=== PATIENT | female | born 1950 | race Caucasian/White ===

== ENCOUNTER 2017-01-29 03:17 | Inpatient (IN) | payer MEDICARE ==
[~2017-01-29] VITALS: Ht 152.4 cm; Wt 90.1 kg
[2017-01-29 04:23] LABS: BASO % 0.3 % (0.0-1.0); EOS # 0.1 10^3/uL (0.0-0.50); IMMATURE GRANULOCYTE % 0.3 % (0-0); LYMPH # 2.7 10^3/uL (1.5-4.5); LYMPH % 22.8 % (24.0-44.0); MEAN CORPUSCULAR HEMOGLOBIN 33.2 pg (27.0-33.0); MEAN CORPUSCULAR HGB CONC 34.5 g/dl (32.0-36.5); MEAN CORPUSCULAR VOLUME 96.3 fl (80.0-96.0); MONO % 8.1 % (0.0-5.0); NEUTROPHILS # 8.1 10^3/uL (1.8-7.7); NEUTROPHILS % 67.5 % (36.0-66.0); PLATELET COUNT, AUTOMATED 300 10^3/uL (150-450); RED CELL DISTRIBUTION WIDTH 12.3 % (11.5-14.5)
[2017-01-29 04:41] LABS: ALBUMIN 3.7 GM/DL (3.2-5.2); ALKALINE PHOSPHATASE 69 U/L (45-117); ALT/SGPT 95 U/L (12-78); AMYLASE 212 U/L (25-115); ANION GAP 5 MEQ/L (8-16); AST/SGOT 154 U/L (7-37); BILIRUBIN,DIRECT 0.4 MG/DL (0.0-0.2); BILIRUBIN,TOTAL 0.8 MG/DL (0.2-1.0); BLOOD UREA NITROGEN 20 MG/DL (7-18); CALCIUM LEVEL 8.8 MG/DL (8.8-10.2); CARBON DIOXIDE LEVEL 31 MEQ/L (21-32); CHLORIDE LEVEL 104 MEQ/L (98-107); CREATININE FOR GFR 0.83 MG/DL (0.55-1.02); GLOMERULAR FILTRATION RATE > 60.0 (>45); GLUCOSE, FASTING 128 MG/DL (80-110); POTASSIUM SERUM 3.9 MEQ/L (3.5-5.1); SODIUM LEVEL 140 MEQ/L (136-145); TOTAL PROTEIN 7.8 GM/DL (6.4-8.2)
[2017-01-29] MEDS ORDERED: METOCLOPRAMIDE INJ 10MG/2ML VIAL (J2765) IV ONE (05:00)
[2017-01-29] MEDS ORDERED: NS 1,000 ML IV ONE (05:00)
[2017-01-29] MEDS ORDERED: MORPHINE 4 MG/ML 1ML SYRINGE IV ONE (05:00)
[2017-01-29] MEDS ORDERED: ISOVUE-370 76% 100ML VIAL (Q9967) As Ordered ONE (05:19)
--- NOTE | 2017-01-29 06:10 | REPUSA ---
CLINICAL HISTORY: Abdominal pain. TECHNIQUE: Multiple axial and coronal CT images were obtained through the abdomen and pelvis after ad ministration of oral and intravenous contrast material. COMMENTS: The liver is of uniform attenuation without mass or defect. There is no intra or extrahepatic biliary ductal dilatation. The spleen is normal. The gallbladder is distended, thickened and enhancing . The pancreas is mildly enlarged and hyperdense with surrounding inflammatory fat stranding. Minimal amou nt of surrounding free fluid. There is no evidence of adrenal mass. Both kidneys demonstrate prompt and equal nephrograms. The kidneys are normal in size, shape and conf iguration. There is no evidence of renal or ureteral mass. No renal or ureteral calculi are identifie d. There is no hydroureter or hydronephrosis. No evidence for appendicitis. There is no bowel wall thickening. No evidence for small or large bowel obstruction. There is no evidence of abdominal lymphadenopathy. There is no evidence of intrinsic or extrinsic bladder mass. There is no pelvic ascites or lymphadeno reena. Images of the lung bases show no evidence of pleural or parenchymal mass. There are no pleural effusi ons. The bony structures are free of lytic or blastic lesions. IMPRESSION: Acute pancreatitis. No drainable fluid collection. Suspected acute inflammatory changes of the gallbladder which is distended. No perforation or abscess formation. Thank you for your kind referral of this patient.
--- NOTE | 2017-01-29 08:17 | REP ---
RIGHT UPPER QUADRANT ULTRASOUND: 01/29/2017. Clinical history: CT abdomen and pelvis 01/29/2017. Clinical history: Pancreatitis symptoms. Gallbladder distension. The liver is homogeneous and diffusely hyperechoic consistent with fatty infiltration. There is some focal fat sparing. No biliary dilatation, adjacent ascites or hepatic cyst/mass. Gallbladder is distended measuring up to 10 cm. There is a small stone dependent in the gallbladder. Some pericholecystic fluid is present. The wall is edematous. There is significant tenderness of the gallbladder representing sonographic Eastman sign. Limited view of the pancreas, that area that is seen shows no definite mass. Common duct is 8.3 mm which is upper limits of normal for age. I do not see an echogenic filling defect or stone within. Right kidney is 10.6 x 5.5 x 5 cm without hydronephrosis. Impression: 1. Positive sonographic Eastman's sign, pericholecystic fluid, some gallbladder wall edema and a tiny stone in the gallbladder representing some acute cholecystitis with cholelithiasis. 2. The common bile duct 8.3 mm, upper limits normal for age and no filling defect within it. 3. Pancreatic head and body seen in part without discrete mass, but only seen in part due to gas shadowing. 4. Fatty infiltration of the liver. No generalized ascites. The right kidney normal. Signed by John Jacobsen MD 01/30/2017 05:47 P
[2017-01-29] MEDS ORDERED: MORPHINE 2 MG/ML 1ML SYRINGE IV PRN (09:00)
[2017-01-29] MEDS ORDERED: DEXTROSE 50% 50 ML SYRINGE IV PRN (09:00)
[2017-01-29] MEDS ORDERED: ONDANSETRON 4MG/2ML VIAL (J2405) IV PRN (09:00)
[2017-01-29] MEDS ORDERED: GLUCAGON FOR INJ 1 MG VIAL (J1610) SC PRN (09:00)
[2017-01-29] MEDS ORDERED: PIPERACILLIN/TAZOBACTAM SOD 3.375 GM in APPROPRIATE DILUENT 1 EA IV ONE (09:00)
[2017-01-29] MEDS ORDERED: GLUCOSE 4 GM CHEW TABLET PO PRN (09:00)
[2017-01-29] MEDS: NS 1,000 ML IV SCH ×4 (09:21→20:37)
--- NOTE | 2017-01-29 13:37 | HPEPDOC ---
General Date of Admission Jan 29, 2017 at 08:48 Other Providers PCP: Dr. Cheng in [place], [place] Attending Physician: GENNA WARD MD Chief Complaint The patient is a 66-year-old female admitted with a reason for visit of Pancreatitis. Source: Patient Exam Limitations: No limitations History of Present Illness Ms. Hong is a 66 year old female who presents to [facility]'s Emergency Department with abdominal pain. Past medical history is significant for: pancreatitis; diverticulitis; fibromyalgia; hiatal hernia; fatty liver; anxiety. She reports abdominal pain beginning this morning around 0100; she states she had not yet gone to bed. She described the pain as "gas" and drank some pepe melina that did not provide sufficient relief. Further describes the pain as a "hurt." The pain worsened over the next 1-2 hours and began radiating to her back, between her shoulder blades. At the point, she woke her and had a neighbor drive her to the hospital. She denies any recent changes to her diet ; she denies any recent trauma. She does state she has been recovering from a URI over the last 2-3 weeks, and maintains an occasional dry cough. She had a prior episode of pancreatitis "in the spring"; she was not admitted to the hospital but rather managed by her PCP. The pain described during this episode was sharp. She takes no prescription medications; she only takes herbal supplements: FibroCare, CoQ10, Celadrin, probiotic, gallbladder supplement. Hospitalist service was consulted for the patient to be admitted for further medical management. Home Medications No Active Prescriptions or Reported Meds Allergies Coded Allergies: No Known Allergies (Unverified , 01/29/17) Past Medical History Medical History 1. Pancreatitis 2. Diverticulitis 3. Hiatal hernia 4. Fatty liver 5. Anxiety Surgical History 1. D&C for postmenopausal bleeding 2. Colon resection for diverticulitis 3. Carpal tunnel surgery, bilateral 4. 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 Dyspnea, Edema, Lt Headedness Gastrointestinal: Reports: Abdominal Pain, Denies: Nausea, Vomiting, Diarrhea, Constipation, Melena, Hematochezia Genitourinary: Denies: Dysuria, Frequency, Incontinence, Hematuria, Retention Hematologic: Denies: Bruising, Bleeding Excessively, Enlarged Lymph Nodes Endocrine: Denies: Polydipsia, Polyphagia, Polyuria Musculoskeletal: Denies: Neck Pain, Back Pain, Joint Pain, Muscle Pain, Spasms Neurological: Denies: Weakness, Numbness, Change in speech, Confusion Psych: Reports: Mood Normal, Anxiety, Denies: Depression, Memory Issues Physical Examination General Exam: Positive: Alert, Cooperative, No Acute Distress Eye Exam: Positive: PERRLA, Conjunctiva & lids normal, EOMI, Negative: Sclera icteric, Ptosis ENT Exam: Positive: Atraumatic, Mucous membr. moist/pink, Pharynx Normal, Tongue Midline, Negative: Pharyngeal Edema Neck Exam: Positive: Supple, Negative: JVD, thyromegaly, Lymphadenopathy Chest Exam: Positive: Clear to auscultation, Normal air movement Heart Exam: Positive: Rate Normal, Regular Rhythm, Normal S1, Normal S2, Negative: Murmurs, Rubs Telemetry: Positive: No significant arrhythmia Abdomen Exam: Positive: Normal bowel sounds, Soft, Tenderness (Throughout abdomen; worse upper right, epigastric), Negative: Hepatospenomegaly Extremity Exam: Positive: Normal pulses, Negative: Clubbing, Cyanosis, Edema Skin Exam: Positive: Nl turgor and temperature, Negative: Breakdown, Lesion Neuro Exam: Positive: Normal Gait, Normal Speech, Cranial Nerves 3-12 NL, Reflexes 2+ Psych Exam: Positive: Mental status NL, Mood NL, Oriented x 3 Other physical findings Abdomen CT Impression: Acute pancreatitis. No drainable fluid collection. Suspected acute inflammatory changes of the gallbladder which is distended. No perforation or abscess formation. Gallbladder Ultrasound Impression: 1. Positive sonographic Eastman's sign, pericholecystic fluid, some gallbladder wall edema and a tiny stone in the gallbladder representing some acute cholecystitis with cholelithiasis. 2. The common bile duct 8.3 mm, upper limits normal for age and no filling defect within it. 3. Pancreatic head and body seen in part without discrete mass, but only seen in part due to gas shadowing. 4. Fatty infiltration of the liver. No generalized ascites. The right kidney normal. Vital Signs Vital Signs Date Time Temp Pulse Resp B/P (MAP) Pulse Ox O2 Delivery O2 Flow Rate FiO2 01/29/17 09:50 88 97 01/29/17 09:46 144/71 (95) 01/29/17 05:45 20 01/29/17 03:31 97.1 Room Air Height (in): 60 Weight (kg): 89.9 BMI (kg): 38.7 Laboratory Data Labs 24H Laboratory Tests 2 01/29/17 04:09: Anion Gap 5L, Glomerular Filtration Rate > 60.0, Calcium Level 8.8, Aspartate Amino Transf (AST/SGOT) 154H, Alanine Aminotransferase (ALT/SGPT) 95H, Alkaline Phosphatase 69, Total Bilirubin 0.8, Direct Bilirubin 0.4H, Total Creatine Kinase 162, Creatine Kinase MB 1.8, Creatine Kinase MB Relative Index 1.11, Troponin I < 0.02, Total Protein 7.8, Albumin 3.7, Albumin/Globulin Ratio 0.90L , Amylase Level 212H, Lipase 9382H 01/29/17 04:10: Immature Granulocyte % (Auto) 0.3H, White Blood Count 12.0H, Red Blood Count 4.58, Hemoglobin 15.2, Hematocrit 44.1, Mean Corpuscular Volume 96.3H, Mean Corpuscular Hemoglobin 33.2H, Mean Corpuscular Hemoglobin Concent 34.5, Red Cell Distribution Width 12.3, Platelet Count 300, Neutrophils (%) (Auto) 67.5H, Lymphocytes (%) (Auto) 22.8L, Monocytes (%) (Auto) 8.1H, Eosinophils (%) (Auto) 1.0, Basophils (%) (Auto) 0.3, Neutrophils # (Auto) 8.1H, Lymphocytes # (Auto) 2.7, Monocytes # (Auto) 1.0H, Eosinophils # (Auto) 0.1, Basophils # (Auto) 0.0, Immature Granulocyte # (Auto) 0.0, Nucleated Red Blood Cells % (auto) 0.0, Urine Appearance CLEAR, Urine Color STRAW, Urine pH 7.0, Urine Specific [employer] 1.008, Urine Protein NEGATIVE, Urine Glucose (UA) NEGATIVE, Urine Ketones NEGATIVE, Urine Urobilinogen 0.2, Urine Bilirubin NEGATIVE, Urine Leukocyte Esterase 1+H, Urine Blood NEGATIVE, Urine Nitrite NEGATIVE, Urine WBC (Auto) 5H , Urine RBC (Auto) 3, Urine Hyaline Casts (Auto) 0, Urine Bacteria (Auto) 1+H, Urine Squamous Epithelial Cells 2, Urine Sperm (Auto) CBC/BMP Laboratory Tests 01/29/17 04:09 01/29/17 04:10 Red Blood Count 4.58, Mean Corpuscular Volume 96.3 H, Mean Corpuscular Hemoglobin 33.2 H, Mean Corpuscular Hemoglobin Concent 34.5, Red Cell Distribution Width 12.3, Neutrophils (%) (Auto) 67.5 H, Lymphocytes (%) (Auto) 22.8 L, Monocytes (%) (Auto) 8.1 H, Eosinophils (%) (Auto) 1.0, Basophils (%) ( Auto) 0.3, Neutrophils # (Auto) 8.1 H, Lymphocytes # (Auto) 2.7, Monocytes # ( Auto) 1.0 H, Eosinophils # (Auto) 0.1, Basophils # (Auto) 0.0 Microbiology Microbiology 01/29/17 Urine Culture, Received Pending Plan / VTE VTE Prophylaxis Ordered?: Yes (Heparin 5,000 units SC every 8 hours; TEDs, sequentials, knee high compression) Plan Plan 1. Acute Pancreatitis: Continue with IVF with NS @250mLs/hr for 2L; then transition to 150mLs/hr. NPO. Surgical consult. Obtaining MRCP. Morphine, as needed for pain control. Zofran for nausea. Repeat lipase. Obtain amylase , CRP, and triglycerides. Disposition Admit: Medical-surgical unit Anticipated hospitalization: 3 nights Attending: Dr. Ward IVF: Continue Diet: Make NPO Activity: Continue Current Diagnostics: Check Labs, Repeat Labs in AM, MRI (MRCP) Anticipated Discharge: Home SERAFIN MENDES DO Jan 29, 2017 11:28
[2017-01-29 14:00] VITALS: BP 153/73
[2017-01-29] MEDS: HEPARIN SOD (PORCINE) 5000 UNITS/ML VIAL SC SCH ×2 (14:00→22:28)
[2017-01-29 18:31] VITALS: BP 147/71
[2017-01-29 22:00] VITALS: BP 161/78
[2017-01-30] MEDS: NS 1,000 ML IV SCH ×4 (02:25→23:07)
[2017-01-30 06:00] VITALS: BP 152/74
[2017-01-30] MEDS: HEPARIN SOD (PORCINE) 5000 UNITS/ML VIAL SC SCH (06:00)
[2017-01-30 06:59] LABS: BASO % 0.3 % (0.0-1.0); EOS # 0.3 10^3/uL (0.0-0.50); EOS % 2.8 % (0.0-3.0); IMMATURE GRANULOCYTE % 0.3 % (0-0); LYMPH # 2.3 10^3/uL (1.5-4.5); LYMPH % 24.9 % (24.0-44.0); MEAN CORPUSCULAR HEMOGLOBIN 33.3 pg (27.0-33.0); MEAN CORPUSCULAR HGB CONC 34.3 g/dl (32.0-36.5); MEAN CORPUSCULAR VOLUME 97.2 fl (80.0-96.0); MONO # 0.9 10^3/uL (0.0-0.8); MONO % 9.4 % (0.0-5.0); NEUTROPHILS # 5.7 10^3/uL (1.8-7.7); NEUTROPHILS % 62.3 % (36.0-66.0); PLATELET COUNT, AUTOMATED 252 10^3/uL (150-450); RED CELL DISTRIBUTION WIDTH 12.6 % (11.5-14.5); WHITE BLOOD COUNT 9.2 10^3/uL (4.0-10.0)
[2017-01-30 07:09] LABS: ALBUMIN 2.9 GM/DL (3.2-5.2); ALBUMIN/GLOBULIN RATIO 0.78 (1.00-1.93); ALKALINE PHOSPHATASE 79 U/L (45-117); ALT/SGPT 271 U/L (12-78); AMYLASE 350 U/L (25-115); ANION GAP 7 MEQ/L (8-16); AST/SGOT 187 U/L (7-37); BILIRUBIN,TOTAL 1.4 MG/DL (0.2-1.0); BLOOD UREA NITROGEN 11 MG/DL (7-18); CALCIUM LEVEL 8.1 MG/DL (8.8-10.2); CARBON DIOXIDE LEVEL 25 MEQ/L (21-32); CHLORIDE LEVEL 110 MEQ/L (98-107); GLOMERULAR FILTRATION RATE > 60.0 (>45); GLUCOSE, FASTING 78 MG/DL (80-110); MAGNESIUM LEVEL 1.7 MG/DL (1.8-2.4); POTASSIUM SERUM 3.7 MEQ/L (3.5-5.1); SODIUM LEVEL 142 MEQ/L (136-145); TOTAL PROTEIN 6.6 GM/DL (6.4-8.2); TRIGLYCERIDES LEVEL 50 MG/DL (<150)
[2017-01-30] MEDS ORDERED: MAG SULF 1GM/100ML (MAG RUN) 1 GM in APPROPRIATE DILUENT 1 EA IV ONE (07:45)
--- NOTE | 2017-01-30 09:00 | REP ---
MRI ABDOMEN WITHOUT CONTRAST (MRCP): 01/29/2017. Clinical history: Pancreatitis. Increased abdominal pain. Small stone or stones on gallbladder ultrasound. Technique: Coronal T2, axial fat suppressed T2 with thick slab coronal fat suppressed T2 rotational views, 3-D heavy T2-weighted coronal sequence with MIP reformatting and rotational display about the longitudinal axis of the abdomen. Gradient-echo fat suppressed sequence also in volume reconstructions rotated about the coronal axis of the body. Gallbladder mildly distended at 9.6 x 3.7 x 3.3 cm. A couple of tiny filling defects are seen on the coronal T2 images less well visualized on the thick slab images but also seen on gradient echo coronal acquisition. These reflect small stones which may be adherent or in the dependent gallbladder. I do not see stone in the neck of the gallbladder or dilatation of the cystic duct. Common duct has a maximal diameter of 6.1 mm. It does not have filling defect in the az hepatis or pancreatic head region. The distal pancreatic duct is seen in the pancreatic head without dilatation or filling defect. There is a small amount of fluid in the duodenum, but no evidence of mass adjacent to the pancreas nor abnormal fluid collection. There is no hepatomegaly with a 17 cm vertical diameter of the liver. No intrahepatic biliary dilatation. No perihepatic ascites. No splenomegaly or focal splenic lesion seen. Kidneys show a few parapelvic cysts in the lower poles but no hydronephrosis or hydroureter. No solid mass or perinephric fluid. Aorta unremarkable. Visualized pancreas is without mass or ductal dilatation. Impression: 1. There are a few tiny stones in the gallbladder near the fundus that are either adherent stones or small stones in that dependent portion. I do not see stones in the gallbladder neck or cystic duct. The common duct is 6 mm without a filling defect in the az hepatis. It tapers normally to the ampulla in its course. Pancreatic head and that of the distal pancreatic duct were entirely normal. 2. There is no ascites or focal hepatic lesion. 3. No evidence of pancreatitis by MRI. Signed by John Jacobsen MD 01/30/2017 08:25 P
[2017-01-30] MEDS: PIPERACILLIN/TAZOBACTAM SOD 3.375 GM in APPROPRIATE DILUENT 1 EA IV SCH ×3 (10:10→21:13)
--- NOTE | 2017-01-30 10:40 | IPNPDOC ---
Date Seen The patient was seen on 01/30/17. Progress Note SUBJECTIVE: Patient is a 66-year-old female with past medical history of: pancreatitis; diverticulitis; fibromyalgia; hiatal hernia; fatty liver; anxiety; presenting on 01/29/2017 with abdominal pain. Today she was seen bedside and had no stated complaints. She has been refusing the heparin subcutaneous injections, but maintains wearing the SCDs and states she will begin walking once her brings her robe. She denies headache, lightheadedness, dizziness, chest pain, shortness of breath, difficulty breathing, abdominal pain, nausea vomiting. OBJECTIVE PHYSICAL EXAMINATION: VITAL SIGNS: Please see below. GENERAL: Well-nourished female patient lying supine in bed HEENT: Atraumatic, normocephalic; EOMI; mucus membranes moist; neck supple CARDIOVASCULAR: Regular rate; normal S1/S2; no noted rubs, murmurs, or gallops RESPIRATORY: Clear to auscultation in all cuadra bilaterally ABDOMINAL: Soft; tender in right upper quadrant, epigastric, non-tender otherwise. Normoactive bowel sounds EXTREMITIES: Moves all extremities. No noted peripheral edema, painful to palpation of lower extremities NEUROLOGICAL: CN II-XII grossly intact PSYCHOLOGICAL: Pleasant mood and affect; alert and conversant. LABORATORY DATA: Please see below. MICROBIOLOGY: Please see below. IMAGING: Abdomen/Pelvis CT Impression: Acute pancreatitis. No drainable fluid collection. Suspected acute inflammatory changes of the gallbladder which is distended. No perforation or abscess formation. Gallbladder Ultrasound Impression: 1. Positive sonographic Eastman's sign, pericholecystic fluid, some gallbladder wall edema and a tiny stone in the gallbladder representing some acute cholecystitis with cholelithiasis. 2. The common bile duct 8.3 mm, upper limits normal for age and no filling defect within it. 3. Pancreatic head and body seen in part without discrete mass, but only seen in part due to gas shadowing. 4. Fatty infiltration of the liver. No generalized ascites. The right kidney normal. MRCP Impression: 1. There are a few tiny stones in the gallbladder near the fundus that are either adherent stones or small stones in that dependent portion. I do not see stones in the gallbladder neck or cystic duct. The common duct is 6 mm without a filling defect in the az hepatis. It tapers normally to the ampulla in its course. Pancreatic head and that of the distal pancreatic duct were entirely normal. 2. There is no ascites or focal hepatic lesion. 3. No evidence of pancreatitis by MRI. DVT prophylaxis ordered?: Yes, TEDs and SCDs ASSESSMENT AND PLAN: This is a 66-year-old female with acute pancreatitis, acute cholecystitis. PROBLEMS: 1. Acute Pancreatitis: Continue with NS @150mLs/hr. Lipase has decreased to 8675. AST/ALT 187/271. Surgery consulted and recommends that if liver enzymes improve then patient can be discharged with follow-up for out-patient cholecystectomy. However, if bilirubin increases, then could consider GI consult for possible ERCP. Repeat amylase increased from 212 to 350. CRP obtained at 7.93 and triglycerides 50. 2. Cholecystitis/cholelithiasis: Resume Zosyn. Morphine for pain control, as needed. Zofran, as needed for nausea. Monitor LFTs. If worsening, then could consider GI consult and ERCP. 2. Hypomagnesemia: Replenish magnesium. DISPOSITION: Medical-surgical unit. Surgical recommendations as noted above. VS, I&O, 24H, Dolly Vital Signs/I&O Vital Signs Date Time Temp Pulse Resp B/P (MAP) Pulse Ox O2 Delivery O2 Flow Rate FiO2 01/30/17 06:00 97.7 77 16 152/74 (100) 92 Room Air I&O- Last 24 Hours up to 6 AM 01/31/17 06:00 Intake Total 1800 ml Balance 1800 ml Laboratory Data 24H LABS Laboratory Tests 2 01/30/17 06:20: Immature Granulocyte % (Auto) 0.3H, White Blood Count 9.2, Red Blood Count 3.99L , Hemoglobin 13.3, Hematocrit 38.8, Mean Corpuscular Volume 97.2H, Mean Corpuscular Hemoglobin 33.3H, Mean Corpuscular Hemoglobin Concent 34.3, Red Cell Distribution Width 12.6, Platelet Count 252, Neutrophils (%) (Auto) 62.3, Lymphocytes (%) (Auto) 24.9, Monocytes (%) (Auto) 9.4H, Eosinophils (%) (Auto) 2.8, Basophils (%) (Auto) 0.3, Neutrophils # (Auto) 5.7, Lymphocytes # (Auto) 2.3, Monocytes # (Auto) 0.9H, Eosinophils # (Auto) 0.3, Basophils # (Auto) 0.0, Immature Granulocyte # (Auto) 0.0, Nucleated Red Blood Cells % (auto) 0.0, Anion Gap 7L, Glomerular Filtration Rate > 60.0, Blood Urea Nitrogen 11, Creatinine 0.60, Sodium Level 142, Potassium Level 3.7, Chloride Level 110H, Carbon Dioxide Level 25, Calcium Level 8.1L, Aspartate Amino Transf (AST/SGOT) 187H, Alanine Aminotransferase (ALT/SGPT) 271H, Alkaline Phosphatase 79, Total Bilirubin 1.4#H, Triglycerides Level 50, Total Protein 6.6, Albumin 2.9#L, Magnesium Level 1.7L, C-Reactive Protein, Quantitative 7.93H, Albumin/Globulin Ratio 0.78L, Amylase Level 350H, Lipase 8675H CBC/BMP Laboratory Tests 01/30/17 06:20 Red Blood Count 3.99 L, Mean Corpuscular Volume 97.2 H, Mean Corpuscular Hemoglobin 33.3 H, Mean Corpuscular Hemoglobin Concent 34.3, Red Cell Distribution Width 12.6, Neutrophils (%) (Auto) 62.3, Lymphocytes (%) (Auto) 24.9, Monocytes (%) (Auto) 9.4 H, Eosinophils (%) (Auto) 2.8, Basophils (%) ( Auto) 0.3, Neutrophils # (Auto) 5.7, Lymphocytes # (Auto) 2.3, Monocytes # (Auto ) 0.9 H, Eosinophils # (Auto) 0.3, Basophils # (Auto) 0.0, Calcium Level 8.1 L, Aspartate Amino Transf (AST/SGOT) 187 H, Alanine Aminotransferase (ALT/SGPT) 271 H, Alkaline Phosphatase 79, Total Bilirubin 1.4 #H, Triglycerides Level 50, Total Protein 6.6, Albumin 2.9 #L Microbiology Microbiology 01/29/17 Urine Culture, Received Pending SERAFIN MENDES DO Jan 30, 2017 08:53
[2017-01-30] MEDS: ENOXAPARIN 40 MG/0.4 ML SYRINGE (J1650) SC SCH (11:35)
--- NOTE | 2017-01-30 12:17 | ECGEPIP ---
Stationary ECG Study [facility] - ED Test Date: 2017-01-29 Pat Name: VALENTINO MELCHOR Department: Room: - Gender: F Hardness Tester: MccabeB: [id number] Requested By: CULLEN RAMOS Order Number: [id number] Reading MD: Amanda Martinez Measurements Intervals [place] Rate: 82 P: 40 LA: 147 QRS: -4 QRSD: 104 T: 35 QT: 382 QTc: 447 Interpretive Statements SINUS RHYTHM ?PRIOR INFERIOR INFARCT PRWP NSTTW ABNORMALITY NO PRIOR FOR COMPARISON Electronically Signed On 01-30-2017 12:17:31 EST by Amanda Martinez
[2017-01-30 14:00] VITALS: BP 146/82
[2017-01-30 22:00] VITALS: BP 154/88
[2017-01-31] MEDS: PIPERACILLIN/TAZOBACTAM SOD 3.375 GM in APPROPRIATE DILUENT 1 EA IV SCH ×4 (02:03→21:11)
[2017-01-31] MEDS: NS 1,000 ML IV SCH ×2 (04:25→22:29)
[2017-01-31 06:00] VITALS: BP 138/64
[2017-01-31] MEDS ORDERED: MAG SULF 1GM/100ML (MAG RUN) 1 GM in APPROPRIATE DILUENT 1 EA IV ONE (07:15)
[2017-01-31 07:29] LABS: BASO % 0.2 % (0.0-1.0); EOS # 0.3 10^3/uL (0.0-0.50); EOS % 3.2 % (0.0-3.0); IMMATURE GRANULOCYTE % 0.2 % (0-0); LYMPH # 1.9 10^3/uL (1.5-4.5); LYMPH % 22.5 % (24.0-44.0); MEAN CORPUSCULAR HEMOGLOBIN 33.3 pg (27.0-33.0); MEAN CORPUSCULAR HGB CONC 34.2 g/dl (32.0-36.5); MEAN CORPUSCULAR VOLUME 97.5 fl (80.0-96.0); MONO # 0.7 10^3/uL (0.0-0.8); MONO % 8.2 % (0.0-5.0); NEUTROPHILS # 5.6 10^3/uL (1.8-7.7); NEUTROPHILS % 65.7 % (36.0-66.0); PLATELET COUNT, AUTOMATED 243 10^3/uL (150-450); RED CELL DISTRIBUTION WIDTH 12.3 % (11.5-14.5); WHITE BLOOD COUNT 8.6 10^3/uL (4.0-10.0)
[2017-01-31 07:45] LABS: ALBUMIN 3.1 GM/DL (3.2-5.2); ALBUMIN/GLOBULIN RATIO 0.82 (1.00-1.93); ALKALINE PHOSPHATASE 93 U/L (45-117); ALT/SGPT 199 U/L (12-78); ANION GAP 6 MEQ/L (8-16); AST/SGOT 95 U/L (7-37); BILIRUBIN,TOTAL 0.8 MG/DL (0.2-1.0); BLOOD UREA NITROGEN 9 MG/DL (7-18); CALCIUM LEVEL 8.5 MG/DL (8.8-10.2); CARBON DIOXIDE LEVEL 25 MEQ/L (21-32); CHLORIDE LEVEL 109 MEQ/L (98-107); CREATININE FOR GFR 0.61 MG/DL (0.55-1.02); GLOMERULAR FILTRATION RATE > 60.0 (>45); GLUCOSE, FASTING 75 MG/DL (80-110); POTASSIUM SERUM 4.3 MEQ/L (3.5-5.1); SODIUM LEVEL 140 MEQ/L (136-145); TOTAL PROTEIN 6.9 GM/DL (6.4-8.2)
--- NOTE | 2017-01-31 11:05 | CR ---
DATE OF CONSULTATION: 01/30/2017 REASON FOR CONSULTATION: Pancreatitis. HISTORY OF PRESENT ILLNESS: The patient is 66-year-old female presenting with epigastric abdominal pain that is been going on since around 1 o'clock the day before. The patient started right in the middle of her abdomen and was radiating straight into her back. She denies any nausea, vomiting. No diarrhea and no change in bowel movements. No recent history of infection or trauma to the area. She does have a history of gallbladder disease and was followed up for that for a couple of years. Was recommended have surgery at one point, however, she was hesitant to have surgery so she has been taking some gallbladder supplements to try and relieve her symptoms. She has not had any other symptoms of right upper quadrant pain or nausea or vomiting since then. She did have one other episode of this pancreatitis earlier this year that was not as severe as this but no other problems other than that episode. She currently is admitted to the hospital service. They have asked me to evaluate her for possible gallstone pancreatitis. Currently her symptoms are improved. She has been in the hospital for just over 12 hours. Her abdominal pain is gone. Denies any fevers or chills. No nausea, vomiting. No change in bowel or bladder movements. PAST MEDICAL HISTORY: Pancreatitis. Diverticulitis. Hiatal hernia. Fatty liver. Anxiety. PAST SURGICAL HISTORY: Dilation and curettage. Colon resection for diverticulitis. Carpal tunnel surgery bilaterally. Breast lumpectomy that was benign. ALLERGIES: None. HOME MEDICATIONS: Negative. FAMILY HISTORY: Noncontributory. SOCIAL HISTORY: Denies drug, alcohol, tobacco abuse. REVIEW OF SYSTEMS: Pertinent positive and negatives as stated in the history of present illness (HPI). PHYSICAL EXAMINATION: General: Patient is alert and oriented times three. No acute distress. Vitals: Temperature 97.7, pulse 77, respirations 16, blood pressure 152/74, pulse ox 98% in room air. HEENT: Pupils equal round react to light and accommodation. Heart: S1, S2 regular rate and rhythm. Lungs: Clear to auscultation bilaterally. Abdomen: Soft, slight tenderness to palpation epigastric. No rebounding, guarding, rigidity. Bowel sounds positive. Extremities: No clubbing, cyanosis or edema. LABORATORY DATA: White count 12, up to 9.2 today, hemoglobin 13.3. Total bilirubin 0.8 yesterday up to 1.4 today, direct bilirubin 0.4 up to 0.6 today, AST 154 up to 187, ALT 95 up to 271, lipase 9382 up to 8675. IMAGING STUDIES: CT abdomen and pelvis shows acute pancreatitis. No drainable fluid collection. Suspected acute inflammatory change in the gallbladder which is distended. No signs of perforation or abscess formation. Ultrasound of the abdomen shows positive sonographic Eastman sign, pericholecystic fluid. Some gallbladder wall edema and tiny stone in the gallbladder representing some acute cholecystitis with cholelithiasis. Common bile duct is 8.3 mm. No signs of filling defects within it pancreatic head and body are seen without any. Discrete masses. MRCP shows a few tiny stones in the gallbladder near the fundus. There are either adherence stones or small stones. No signs of stones in the gallbladder neck or the cystic duct. Common duct is 6 mm without a filling defect and the az hepatis tapers normally to the ampulla in its course. Pancreatic head and that of the distal pancreatic duct were entirely normal. No signs of ascites or focal hepatic lesions. No evidence of pancreatitis by MRI. ASSESSMENT/PLAN: The patient is a 66-year-old female with gallstone pancreatitis likely small amount of acute cholecystitis as well. In the last 24 hours, her liver enzymes have increased including her total and direct bilirubins so there is concern of either some sludge or tiny stones in the, bile duct as well resulting in some minor obstruction. Recommendation is to keep her nothing by mouth for now and continue to monitor enzymes. If enzymes continue to increase by tomorrow, then she will likely need a GI consult for endoscopic retrograde cholangiopancreatography (ERCP). However, if liver enzymes improve then recommendation will be to discharge home and followup with me to schedule an outpatient cholecystectomy. If her lipase had returned to normal sooner, then I would consider doing her procedure during this hospital stay. However, with increase in the enzymes over the last 24 hours as well as a slow improvement in her lipase, these are findings suggestive of a large amount of inflammation that would benefit from waiting a couple of weeks prior to surgical intervention. Thank you for the consult.
[2017-01-31 15:00] VITALS: BP 146/75
--- NOTE | 2017-01-31 15:55 | IPNPDOC ---
Date Seen The patient was seen on 01/31/17. Progress Note SUBJECTIVE: Patient is a 66-year-old female with past medical history of: pancreatitis; diverticulitis; fibromyalgia; hiatal hernia; fatty liver; anxiety; presenting on 01/29/2017 with abdominal pain. Today, she was seen at bedside and had only complaint of minor nausea, with no reported episodes of vomiting. She was informed that Zofran is available as needed, and she asked the nurse in the room to provide it. She also reports one episode of loose stools this morning. She denies headache, lightheadedness , dizziness, chest pain, shortness of breath, difficulty breathing. OBJECTIVE PHYSICAL EXAMINATION: VITAL SIGNS: Please see below. GENERAL: Well-nourished female patient lying supine in bed HEENT: Atraumatic, normocephalic; EOMI; mucus membranes moist; neck supple CARDIOVASCULAR: Regular rate; normal S1/S2; no noted rubs, murmurs, or gallops RESPIRATORY: Clear to auscultation in all cuadra bilaterally ABDOMINAL: Soft, non-tender in all quadrants. Normoactive bowel sounds EXTREMITIES: Moves all extremities. No noted peripheral edema. No noted peripheral pain on palpation NEUROLOGICAL: CN II-XII grossly intact PSYCHOLOGICAL: Pleasant mood and affect; alert and conversant. LABORATORY DATA: Please see below. MICROBIOLOGY: Please see below. IMAGING: Abdomen/Pelvis CT Impression: Acute pancreatitis. No drainable fluid collection. Suspected acute inflammatory changes of the gallbladder which is distended. No perforation or abscess formation. Gallbladder Ultrasound Impression: 1. Positive sonographic Eastman's sign, pericholecystic fluid, some gallbladder wall edema and a tiny stone in the gallbladder representing some acute cholecystitis with cholelithiasis. 2. The common bile duct 8.3 mm, upper limits normal for age and no filling defect within it. 3. Pancreatic head and body seen in part without discrete mass, but only seen in part due to gas shadowing. 4. Fatty infiltration of the liver. No generalized ascites. The right kidney normal. MRCP Impression: 1. There are a few tiny stones in the gallbladder near the fundus that are either adherent stones or small stones in that dependent portion. I do not see stones in the gallbladder neck or cystic duct. The common duct is 6 mm without a filling defect in the az hepatis. It tapers normally to the ampulla in its course. Pancreatic head and that of the distal pancreatic duct were entirely normal. 2. There is no ascites or focal hepatic lesion. 3. No evidence of pancreatitis by MRI. DVT prophylaxis ordered?: Lovenox 40mg SC daily. ASSESSMENT AND PLAN: This is a 66-year-old female with acute pancreatitis, acute cholecystitis. PROBLEMS: 1. Gallstone pancreatitis: Continue with NS @75mLs/hr. Lipase has decreased to 2500. AST/ALT 95/199. Total bilirubin decreased from 1.4 to 0.8 today. Continue with Zosyn. Morphine for pain control, as needed. Zofran, as needed for nausea. Patient will need to follow-up with general surgery out-patient to discuss cholecystectomy. Advance to clear liquid diet with advancement to regular diet if she tolerates it. Potential discharge in 24 hours. 3. Hypomagnesemia: Replenish magnesium. 4. Asymptomatic bacteriuria: Patient denies dysuria, increased frequency of urination, urinary urgency, suprapubic pain, hematuria. DISPOSITION: Admitted to the medical-surgical unit. Advanced diet. If diet tolerance, then potential discharge in 24 hours. VS[facility] Sign[facility]/I&O Vital Signs Date Time Temp Pulse Resp B/P (MAP) Pulse Ox O2 Delivery O2 Flow Rate FiO2 01/31/17 06:00 97.6 74 18 138/64 (88) 93 Room Air Laboratory Data 24H LABS Laboratory Tests 2 01/30/17 09:50: Direct Bilirubin 0.6H 01/31/17 06:53: Immature Granulocyte % (Auto) 0.2H, White Blood Count 8.6, Red Blood Count 3.96L , Hemoglobin 13.2, Hematocrit 38.6, Mean Corpuscular Volume 97.5H, Mean Corpuscular Hemoglobin 33.3H, Mean Corpuscular Hemoglobin Concent 34.2, Red Cell Distribution Width 12.3, Platelet Count 243, Neutrophils (%) (Auto) 65.7, Lymphocytes (%) (Auto) 22.5L, Monocytes (%) (Auto) 8.2H, Eosinophils (%) (Auto) 3.2H, Basophils (%) (Auto) 0.2, Neutrophils # (Auto) 5.6, Lymphocytes # (Auto) 1.9, Monocytes # (Auto) 0.7, Eosinophils # (Auto) 0.3, Basophils # (Auto) 0.0, Immature Granulocyte # (Auto) 0.0, Nucleated Red Blood Cells % (auto) 0.0, Anion Gap 6L, Glomerular Filtration Rate > 60.0, Blood Urea Nitrogen 9, Creatinine 0.61, Sodium Level 140, Potassium Level 4.3, Chloride Level 109H, Carbon Dioxide Level 25, Calcium Level 8.5L, Aspartate Amino Transf (AST/SGOT) 95H, Alanine Aminotransferase (ALT/SGPT) 199H, Alkaline Phosphatase 93, Total Bilirubin 0.8, Total Protein 6.9, Albumin 3.1L, Albumin/Globulin Ratio 0.82L, Lipase 2500H CBC/BMP Laboratory Tests 01/31/17 06:53 Red Blood Count 3.96 L, Mean Corpuscular Volume 97.5 H, Mean Corpuscular Hemoglobin 33.3 H, Mean Corpuscular Hemoglobin Concent 34.2, Red Cell Distribution Width 12.3, Neutrophils (%) (Auto) 65.7, Lymphocytes (%) (Auto) 22.5 L, Monocytes (%) (Auto) 8.2 H, Eosinophils (%) (Auto) 3.2 H, Basophils (%) (Auto) 0.2, Neutrophils # (Auto) 5.6, Lymphocytes # (Auto) 1.9, Monocytes # ( Auto) 0.7, Eosinophils # (Auto) 0.3, Basophils # (Auto) 0.0, Calcium Level 8.5 L , Aspartate Amino Transf (AST/SGOT) 95 H, Alanine Aminotransferase (ALT/SGPT) 199 H, Alkaline Phosphatase 93, Total Bilirubin 0.8, Total Protein 6.9, Albumin 3.1 L Microbiology Microbiology 01/29/17 Urine Culture - Final, Complete Enterococcus Faecium SERAFIN MENDES Jan 31, 2017 08:25
[2017-01-31 22:00] VITALS: BP 132/68
[2017-02-01] MEDS: PIPERACILLIN/TAZOBACTAM SOD 3.375 GM in APPROPRIATE DILUENT 1 EA IV SCH ×2 (03:26→09:35)
[2017-02-01 06:00] VITALS: BP 152/70
[2017-02-01 06:38] LABS: BASO % 0.6 % (0.0-1.0); EOS # 0.4 10^3/uL (0.0-0.50); EOS % 5.4 % (0.0-3.0); IMMATURE GRANULOCYTE % 0.3 % (0-0); LYMPH # 1.9 10^3/uL (1.5-4.5); LYMPH % 29.7 % (24.0-44.0); MEAN CORPUSCULAR HGB CONC 34.7 g/dl (32.0-36.5); MEAN CORPUSCULAR VOLUME 97.9 fl (80.0-96.0); MONO # 0.6 10^3/uL (0.0-0.8); MONO % 8.7 % (0.0-5.0); NEUTROPHILS # 3.6 10^3/uL (1.8-7.7); NEUTROPHILS % 55.3 % (36.0-66.0); PLATELET COUNT, AUTOMATED 250 10^3/uL (150-450); RED CELL DISTRIBUTION WIDTH 12.3 % (11.5-14.5); WHITE BLOOD COUNT 6.5 10^3/uL (4.0-10.0)
[2017-02-01 06:56] LABS: ALBUMIN 3.1 GM/DL (3.2-5.2); ALBUMIN/GLOBULIN RATIO 0.78 (1.00-1.93); ALKALINE PHOSPHATASE 95 U/L (45-117); ALT/SGPT 151 U/L (12-78); ANION GAP 6 MEQ/L (8-16); AST/SGOT 56 U/L (7-37); BILIRUBIN,TOTAL 0.6 MG/DL (0.2-1.0); BLOOD UREA NITROGEN 7 MG/DL (7-18); CALCIUM LEVEL 8.3 MG/DL (8.8-10.2); CARBON DIOXIDE LEVEL 27 MEQ/L (21-32); CHLORIDE LEVEL 110 MEQ/L (98-107); CREATININE FOR GFR 0.76 MG/DL (0.55-1.02); GLOMERULAR FILTRATION RATE > 60.0 (>45); GLUCOSE, FASTING 90 MG/DL (80-110); POTASSIUM SERUM 3.5 MEQ/L (3.5-5.1); SODIUM LEVEL 143 MEQ/L (136-145); TOTAL PROTEIN 7.1 GM/DL (6.4-8.2)
[2017-02-01] MEDS ORDERED: ZOFR4TAB3 PO (08:59)
[2017-02-01] MEDS ORDERED: CIPR500T3 PO (08:59)
[2017-02-01] MEDS ORDERED: FLAG500T PO (08:59)
[2017-02-01] MEDS: ENOXAPARIN 40 MG/0.4 ML SYRINGE (J1650) SC SCH (09:34)
--- NOTE | 2017-02-01 11:13 | DS.PDOC ---
Discharge Summary General Date of Admission Jan 29, 2017 at 08:48 Date of Discharge 02/01/2017 Primary Care Physician: SERAFIN MENDES DO Attending Physician: NARENDRA HAMMER MD Specialist/Consultants Involve: SHAY HILL DO Discharge Summary PROCEDURES PERFORMED DURING STAY: None. ADMITTING DIAGNOSES: 1. Pancreatitis. DISCHARGE DIAGNOSES: 1. Cholecystitis. 2. Pancreatitis. 3. Hypomagnesemia. 4. Asymptomatic bacteriuria COMPLICATIONS/CHIEF COMPLAINT: Pancreatitis. HISTORY OF PRESENT ILLNESS: Ms. Hong is a 66 year old female who presents to [facility] Emergency Department with abdominal pain. Past medical history is significant for: pancreatitis; diverticulitis; fibromyalgia; hiatal hernia; fatty liver; anxiety. She reports abdominal pain beginning this morning around 0100; she states she had not yet gone to bed. She described the pain as "gas" and drank some pepe melina that did not provide sufficient relief. Further describes the pain as a "hurt." The pain worsened over the next 1-2 hours and began radiating to her back, between her shoulder blades. At the point, she woke her and had a neighbor drive her to the hospital. She denies any recent changes to her diet; she denies any recent trauma. She does state she has been recovering from a URI over the last 2-3 weeks, and maintains an occasional dry cough. She had a prior episode of pancreatitis "in the spring"; she was not admitted to the hospital but rather managed by her PCP. The pain described during this episode was sharp. She takes no prescription medications; she only takes herbal supplements: FibroCare , CoQ10, Celadrin, probiotic, gallbladder supplement. Hospitalist service was consulted for the patient to be admitted for further medical management. HOSPITAL COURSE: Patient was admitted. Pain was managed with morphine, nausea managed with Zofran, Zosyn started for cholecystitis. Abdomen/pelvis CT showed acute pancreatitis with suspected inflammatory changes of the gallbladder; gallbladder ultrasound showed acute cholecystitis with cholelithiasis. However , MRCP later showed no evidence of pancreatitis. Surgery was consulted for possible cholecystectomy; they recommended following up in the office in 1-2 weeks and then scheduling the procedure to allow inflammation to decrease. Urine culture obtained in ED showed Enterococcus faecium, but patient remains asymptomatic. Labs including daily BMP, CBC, lipase, liver profile were obtained, which showed elevated white count with slight neutrophilia, elevated direct bilirubin, AST, ALT, amylase, and lipase, all of which improved throughout admission. Magnesium was noted to be low during admission and was replenished. The patient improved clinically throughout admission, and was stable at time of discharge. DISCHARGE MEDICATIONS: Please see below. ALLERGIES: Please see below. PHYSICAL EXAMINATION ON DISCHARGE: VITAL SIGNS: Please see below. GENERAL: Well-nourished adult female lying supine in bed in no apparent distress HEENT: Atraumatic, normocephalic, EOMI NECK: Supple CARDIOVASCULAR EXAMINATION: Normal S1/S2, regular rate, no noted rubs, murmurs, or gallops RESPIRATORY EXAMINATION: Clear to auscultation in all cuadra bilaterally ABDOMINAL EXAMINATION: Soft, non-tender, no peritoneal signs, normoactive bowel sounds EXTREMITIES: Moves all extremities, no noted peripheral edema SKIN: Warm and dry NEUROLOGICAL EXAMINATION: CN II-XII grossly intact PSYCHIATRIC EXAMINATION: Pleasant mood and affect; alert and conversant LABORATORY DATA: Please see below. IMAGING: Abdomen/Pelvis CT Impression: Acute pancreatitis. No drainable fluid collection. Suspected acute inflammatory changes of the gallbladder which is distended. No perforation or abscess formation. Gallbladder Ultrasound Impression: 1. Positive sonographic Eastman's sign, pericholecystic fluid, some gallbladder wall edema and a tiny stone in the gallbladder representing some acute cholecystitis with cholelithiasis. 2. The common bile duct 8.3 mm, upper limits normal for age and no filling defect within it. 3. Pancreatic head and body seen in part without discrete mass, but only seen in part due to gas shadowing. 4. Fatty infiltration of the liver. No generalized ascites. The right kidney normal. MRCP Impression: 1. There are a few tiny stones in the gallbladder near the fundus that are either adherent stones or small stones in that dependent portion. I do not see stones in the gallbladder neck or cystic duct. The common duct is 6 mm without a filling defect in the az hepatis. It tapers normally to the ampulla in its course. Pancreatic head and that of the distal pancreatic duct were entirely normal. 2. There is no ascites or focal hepatic lesion. 3. No evidence of pancreatitis by MRI. PROGNOSIS: Stable ACTIVITY: As tolerated. DIET: Regular diet. DISCHARGE PLAN: Problem: Managing health at home Goal: Improve health & wellness Instructions: Follow DC Instruction DISPOSITION: Home. DISCHARGE INSTRUCTIONS: 1. Continue with a clear liquid diet for the next days; transition to a regular diet after 2. Avoid high-fat meals 3. Start taking a probiotic while on the antibiotics 4. Complete the antibiotic, Ciprofloxacin, 500mg, 1 tablet every 12 hours, for 10 days 5. Complete the antibiotic, Metronidazole, 500mg, 1 tablet every 8 hours, for 10 days 6. Zofran as needed for nausea. Allow at least 4 hours between doses 7. Return to the Emergency Department if symptoms return or worsen ITEMS TO FOLLOWUP ON ON OUTPATIENT: 1. Schedule cholecystectomy on outpatient visit with surgery 2. Follow up with primary care provider, Dr. Mendes, on 02/08/17 @ 2:15pm; 3. Follow up with general surgery, Dr. Hill, on 02/15/17 @ 9:50am; Phone: DISCHARGE CONDITION: Stable. TIME SPENT ON DISCHARGE: Greater than 30 minutes. Vital Signs/I&Os Vital Signs Date Time Temp Pulse Resp B/P (MAP) Pulse Ox O2 Delivery O2 Flow Rate FiO2 02/01/17 06:00 98.7 61 18 152/70 (97) 96 Room Air Laboratory Data Labs 24H Laboratory Tests 2 02/01/17 06:17: Immature Granulocyte % (Auto) 0.3H, White Blood Count 6.5, Red Blood Count 3.85L , Hemoglobin 13.1, Hematocrit 37.7, Mean Corpuscular Volume 97.9H, Mean Corpuscular Hemoglobin 34.0H, Mean Corpuscular Hemoglobin Concent 34.7, Red Cell Distribution Width 12.3, Platelet Count 250, Neutrophils (%) (Auto) 55.3, Lymphocytes (%) (Auto) 29.7, Monocytes (%) (Auto) 8.7H, Eosinophils (%) (Auto) 5.4H, Basophils (%) (Auto) 0.6, Neutrophils # (Auto) 3.6, Lymphocytes # (Auto) 1.9, Monocytes # (Auto) 0.6, Eosinophils # (Auto) 0.4, Basophils # (Auto) 0.0, Immature Granulocyte # (Auto) 0.0, Nucleated Red Blood Cells % (auto) 0.0, Anion Gap 6L, Glomerular Filtration Rate > 60.0, Blood Urea Nitrogen 7, Creatinine 0.76, Sodium Level 143, Potassium Level 3.5, Chloride Level 110H, Carbon Dioxide Level 27, Calcium Level 8.3L, Aspartate Amino Transf (AST/SGOT) 56H, Alanine Aminotransferase (ALT/SGPT) 151H, Alkaline Phosphatase 95, Total Bilirubin 0.6, Total Protein 7.1, Albumin 3.1L, Albumin/Globulin Ratio 0.78L, Lipase 1075H CBC/BMP Laboratory Tests 02/01/17 06:17 Red Blood Count 3.85 L, Mean Corpuscular Volume 97.9 H, Mean Corpuscular Hemoglobin 34.0 H, Mean Corpuscular Hemoglobin Concent 34.7, Red Cell Distribution Width 12.3, Neutrophils (%) (Auto) 55.3, Lymphocytes (%) (Auto) 29.7, Monocytes (%) (Auto) 8.7 H, Eosinophils (%) (Auto) 5.4 H, Basophils (%) ( Auto) 0.6, Neutrophils # (Auto) 3.6, Lymphocytes # (Auto) 1.9, Monocytes # (Auto ) 0.6, Eosinophils # (Auto) 0.4, Basophils # (Auto) 0.0, Calcium Level 8.3 L, Aspartate Amino Transf (AST/SGOT) 56 H, Alanine Aminotransferase (ALT/SGPT) 151 H, Alkaline Phosphatase 95, Total Bilirubin 0.6, Total Protein 7.1, Albumin 3.1 L Microbiology Microbiology 01/29/17 Urine Culture - Final, Complete Enterococcus Faecium Discharge Medications Scheduled Ciprofloxacin HCl (Ciprofloxacin HCl) 500 Mg Tab, 500 MG PO Q12H Metronidazole (Flagyl) 500 Mg Tab, 500 MG PO Q8H FOR 10 DAYS Scheduled PRN Ondansetron (Zofran Odt) 4 Mg Tab, 4 MG PO Q4H PRN for NAUSEA Allergies Coded Allergies: No Known Allergies (Unverified , 01/29/17) SERAFIN MENDES DO Feb 01, 2017 08:45
== END 2017-02-01 12:59 | disposition home or self-care (01) | DRG 444 ==
LOC: M ED 03:17 → M ED INP 08:48 → M MS5PR 18:20
PROVIDERS: ADMIT General Practice; ATTEND Internal Medicine Nephrology
DX: K80.00 Calculus of gallbladder with acute cholecystitis without obstruction (principal); K85.10 Biliary acute pancreatitis without necrosis or infection; E83.42 Hypomagnesemia

== ENCOUNTER 2017-03-01 14:43 | Emergency (ER) | payer MEDICARE | END 2017-03-01 16:32 | disposition home or self-care (01) | LOC: M ED 14:43 | DX: J01.90 Acute sinusitis, unspecified (principal); M94.0 Chondrocostal junction syndrome [Tietze]; G51.0 Bell's palsy; F41.9 Anxiety disorder, unspecified; Z87.19 Personal history of other diseases of the digestive system; Z79.899 Other long term (current) drug therapy; Z91.040 Latex allergy status | CPT/HCPCS: 71046 ==

== ENCOUNTER 2017-03-14 08:01 | Day surgery (SDC) | payer MEDICARE ==
[2017-03-14] MEDS: LR 1,000 ML IV (08:15)
[2017-03-14] MEDS ORDERED: ROCURONIUM BROMIDE 50 MG/5 ML VIAL As Ordered (08:59)
[2017-03-14] MEDS ORDERED: LIDOCAINE 2% INJ 100 MG/5 ML SDV (FOR ANES.) As Ordered (08:59)
[2017-03-14] MEDS ORDERED: fentaNYL 250 MCG/5 ML INJECTION (J3010) As Ordered (08:59)
[2017-03-14] MEDS ORDERED: PROPOFOL 200 MG/20 ML VIAL As Ordered (08:59)
[2017-03-14] MEDS ORDERED: MIDAZOLAM INJ 2 MG/2 ML VIAL (J2250) As Ordered (08:59)
[2017-03-14] MEDS ORDERED: LR 1,000 ML IV ×2 (09:00→11:15)
[2017-03-14] MEDS: SCOPOLAMINE 1MG TRANSDERMAL PATCH TOP (09:00)
[2017-03-14] MEDS ORDERED: ONDANSETRON 4MG/2ML VIAL (J2405) As Ordered (09:54)
[2017-03-14] MEDS ORDERED: NEOSTIGMINE 10 MG/10 ML VIAL (J2710) As Ordered (09:54)
[2017-03-14] MEDS ORDERED: GLYCOPYRROLATE INJ 0.2 MG/ML 2 ML VIAL As Ordered (09:54)
[2017-03-14] MEDS ORDERED: dexameTHASONE 4 MG/ML 1ML VIAL (J1100) As Ordered (09:54)
[2017-03-14] MEDS ORDERED: KETOROLAC 60 MG/2 ML VIAL (J1885) As Ordered (09:54)
[2017-03-14] MEDS ORDERED: diphenhydrAMINE INJ 50MG/ML VIAL (J1200) As Ordered (09:54)
[2017-03-14] MEDS ORDERED: METOCLOPRAMIDE INJ 10MG/2ML VIAL (J2765) As Ordered (09:54)
[2017-03-14] MEDS: LIDOCAINE W/EPINEPHRINE 1% 20ML VIAL As Ordered (09:55)
[2017-03-14] MEDS ORDERED: ONDANSETRON 4MG/2ML VIAL (J2405) IV (11:15)
[2017-03-14] MEDS ORDERED: MEPERIDINE INJ 25 MG/ML VIAL (J2175) IV (11:15)
[2017-03-14] MEDS ORDERED: PERCOCET 5MG/325MG TAB PO (11:15)
[2017-03-14] MEDS ORDERED: fentaNYL 100 MCG/2 ML INJECTION (J3010) IV (11:15)
[2017-03-14] MEDS ORDERED: PROMETHAZINE INJ 25 MG/ML VIAL (J2550) IV (11:15)
[2017-03-14] MEDS ORDERED: NORCO, ANEXSIA 5/325MG TABLET (HYDROcodone/ACETAMINOPHEN) PO (11:30)
== END 2017-03-14 15:25 | disposition home or self-care (01) ==
LOC: M SDC 08:01
DX: K85.10 Biliary acute pancreatitis without necrosis or infection (principal); K80.10 Calculus of gallbladder with chronic cholecystitis without obstruction; K57.32 Diverticulitis of large intestine without perforation or abscess without bleeding; K76.0 Fatty (change of) liver, not elsewhere classified; F41.9 Anxiety disorder, unspecified; K44.9 Diaphragmatic hernia without obstruction or gangrene; E83.42 Hypomagnesemia; R82.71 Bacteriuria; T88.59XD Other complications of anesthesia, subsequent encounter; M12.9 Arthropathy, unspecified; Z79.899 Other long term (current) drug therapy; Z78.0 Asymptomatic menopausal state
CPT/HCPCS: 47562

== ENCOUNTER 2017-03-23 12:22 | Emergency (ER) | payer MEDICARE ==
[2017-03-23] MEDS ORDERED: MORPHINE 4 MG/ML 1ML SYRINGE IV (13:30)
[2017-03-23] MEDS ORDERED: ONDANSETRON 4MG/2ML VIAL (J2405) IV (13:30)
[2017-03-23] MEDS ORDERED: GASTROGRAFIN SOLUTION 30ML (Q9963) PO (13:45)
[2017-03-23] MEDS: GASTROGRAFIN SOLUTION 30ML (Q9963) PO ×2 (13:59→14:30)
[2017-03-23] MEDS: NS 1,000 ML IV (14:01)
[2017-03-23 14:06] LABS: BASO % 0.5 % (0.0-1.0); EOS # 0.1 10^3/uL (0.0-0.50); EOS % 1.6 % (0.0-3.0); HEMOGLOBIN 14.7 g/dl (12.0-16.0); IMMATURE GRANULOCYTE % 0.4 % (0-0); LYMPH # 2.7 10^3/uL (1.5-4.5); LYMPH % 32.9 % (24.0-44.0); MEAN CORPUSCULAR HEMOGLOBIN 33.3 pg (27.0-33.0); MONO # 0.7 10^3/uL (0.0-0.8); MONO % 9.1 % (0.0-5.0); NEUTROPHILS # 4.5 10^3/uL (1.8-7.7); NEUTROPHILS % 55.5 % (36.0-66.0); PLATELET COUNT, AUTOMATED 310 10^3/uL (150-450); RED BLOOD COUNT 4.42 10^6/uL (4.00-5.40); RED CELL DISTRIBUTION WIDTH 11.9 % (11.5-14.5); WHITE BLOOD COUNT 8.1 10^3/uL (4.0-10.0)
[2017-03-23 14:31] LABS: ALBUMIN 3.6 GM/DL (3.2-5.2); ALBUMIN/GLOBULIN RATIO 0.86 (1.00-1.93); ALKALINE PHOSPHATASE 78 U/L (45-117); ALT/SGPT 30 U/L (12-78); AMYLASE 22 U/L (25-115); ANION GAP 6 MEQ/L (8-16); AST/SGOT 20 U/L (7-37); BILIRUBIN,DIRECT 0.2 MG/DL (0.0-0.2); BILIRUBIN,TOTAL 0.7 MG/DL (0.2-1.0); BLOOD UREA NITROGEN 10 MG/DL (7-18); CALCIUM LEVEL 9.1 MG/DL (8.8-10.2); CARBON DIOXIDE LEVEL 28 MEQ/L (21-32); CHLORIDE LEVEL 103 MEQ/L (98-107); CREATININE FOR GFR 0.76 MG/DL (0.55-1.02); GLOMERULAR FILTRATION RATE > 60.0 (>45); GLUCOSE, FASTING 95 MG/DL (70-100); LIPASE 127 U/L (73-393); POTASSIUM SERUM 3.8 MEQ/L (3.5-5.1); SODIUM LEVEL 137 MEQ/L (136-145); TOTAL PROTEIN 7.8 GM/DL (6.4-8.2)
[2017-03-23] MEDS ORDERED: ISOVUE-370 76% 100ML VIAL (Q9967) As Ordered (14:56)
== END 2017-03-23 16:11 | disposition home or self-care (01) ==
LOC: M ED 12:22
DX: R10.31 Right lower quadrant pain (principal); G89.18 Other acute postprocedural pain; K76.0 Fatty (change of) liver, not elsewhere classified; Z87.19 Personal history of other diseases of the digestive system; Z90.49 Acquired absence of other specified parts of digestive tract; Z79.899 Other long term (current) drug therapy; Z91.040 Latex allergy status
CPT/HCPCS: Q9963

== ENCOUNTER → 2017-04-10 | Outpatient (REF) | payer MEDICARE ==
[2017-04-10 14:31] LABS: CHOLESTEROL LEVEL 238 MG/DL (<200); CHOLESTEROL RISK RATIO 4.103 (<5); HDL CHOLESTEROL 58 MG/DL (>40); LDL CHOLESTEROL 144.6 MG/DL (<100); NON-HDL-C 180 MG/DL; TRIGLYCERIDES LEVEL 177 MG/DL (<150)
[2017-04-10 14:38] LABS: ESTIMATED AVERAGE GLUCOSE 128 MG/DL (60-110); HEMOGLOBIN A1c 6.1 %
== END ==
LOC: M SFHCPLAZ 14:07
DX: Z00.00 Encounter for general adult medical examination without abnormal findings (principal); Z13.1 Encounter for screening for diabetes mellitus; Z13.6 Encounter for screening for cardiovascular disorders

== ENCOUNTER → 2017-04-10 | Outpatient (CLI) | payer MEDICARE | LOC: M WHC 10:20 | DX: Z12.31 Encounter for screening mammogram for malignant neoplasm of breast (principal); Z78.0 Asymptomatic menopausal state; Z13.1 Encounter for screening for diabetes mellitus; Z13.6 Encounter for screening for cardiovascular disorders; Z80.41 Family history of malignant neoplasm of ovary; Z92.89 Personal history of other medical treatment; Z79.899 Other long term (current) drug therapy | CPT/HCPCS: 83036 ==

== ENCOUNTER → 2017-05-30 | Outpatient (REF) | payer MEDICARE ==
[2017-05-30 13:24] LABS: HEMATOCRIT 45.6 % (36.0-47.0); HEMOGLOBIN 15.9 g/dl (12.0-15.5); MEAN CORPUSCULAR HEMOGLOBIN 33.8 pg (27.0-33.0); MEAN CORPUSCULAR HGB CONC 34.9 g/dl (32.0-36.5); MEAN CORPUSCULAR VOLUME 96.8 fl (80.0-96.0); PLATELET COUNT, AUTOMATED 342 10^3/uL (150-450); RED BLOOD COUNT 4.71 10^6/uL (4.00-5.40); RED CELL DISTRIBUTION WIDTH 12.2 % (11.5-14.5); WHITE BLOOD COUNT 10.6 10^3/uL (4.0-10.0)
[2017-05-30 13:30] LABS: ALBUMIN 3.9 GM/DL (3.2-5.2); ALBUMIN/GLOBULIN RATIO 1.05 (1.00-1.93); ALKALINE PHOSPHATASE 70 U/L (45-117); ALT/SGPT 32 U/L (12-78); ANION GAP 6 MEQ/L (8-16); AST/SGOT 23 U/L (7-37); BILIRUBIN,TOTAL 0.6 MG/DL (0.2-1.0); BLOOD UREA NITROGEN 11 MG/DL (7-18); CALCIUM LEVEL 9.1 MG/DL (8.8-10.2); CARBON DIOXIDE LEVEL 32 MEQ/L (21-32); CHLORIDE LEVEL 104 MEQ/L (98-107); GLOMERULAR FILTRATION RATE > 60.0 (>45); GLUCOSE, FASTING 114 MG/DL (70-100); POTASSIUM SERUM 3.9 MEQ/L (3.5-5.1); SODIUM LEVEL 142 MEQ/L (136-145); TOTAL PROTEIN 7.6 GM/DL (6.4-8.2)
== END ==
LOC: M SFHCPLAZ 11:14
DX: R42 Dizziness and giddiness (principal)
CPT/HCPCS: 80053

== ENCOUNTER → 2017-12-17 | Outpatient (CLI) | payer MEDICARE | LOC: M WHC 08:46 | DX: R93.5 Abnormal findings on diagnostic imaging of other abdominal regions, including retroperitoneum (principal) | CPT/HCPCS: 76830 ==

== ENCOUNTER → 2018-04-19 | Outpatient (CLI) | payer MEDICARE ==
[~2018-04-19] MED LIST: AUGM875T28 PO; CELADRIN PO; CIPR500T3 PO; CO Q60CA PO; FLAG500T PO; IBUP-1022 PO; LUTE10TA PO; TESS100C PO; ZOFR4TAB14 PO; [UNRECOGNIZED DRUG - OTHER] PO
[2018-04-19 18:07] LABS: HEMATOCRIT 45.6 % (36.0-47.0); HEMOGLOBIN 15.4 g/dl (12.0-15.5); MEAN CORPUSCULAR HEMOGLOBIN 33.7 pg (27.0-33.0); MEAN CORPUSCULAR HGB CONC 33.8 g/dl (32.0-36.5); MEAN CORPUSCULAR VOLUME 99.8 fl (80.0-96.0); PLATELET COUNT, AUTOMATED 327 10^3/uL (150-450); RED BLOOD COUNT 4.57 10^6/uL (4.00-5.40); WHITE BLOOD COUNT 9.6 10^3/uL (4.0-10.0)
[2018-04-19 18:25] LABS: HEMOGLOBIN A1c 6.4 %
[2018-04-19 18:44] LABS: ALT/SGPT 28 U/L (12-78); BILIRUBIN,TOTAL 0.4 MG/DL (0.2-1.0); BLOOD UREA NITROGEN 13 MG/DL (7-18); CARBON DIOXIDE LEVEL 27 MEQ/L (21-32); CHLORIDE LEVEL 105 MEQ/L (98-107); CHOLESTEROL LEVEL 248 MG/DL (<200); CHOLESTEROL RISK RATIO 3.815 (<5); GLOMERULAR FILTRATION RATE > 60.0 (>45); GLUCOSE, FASTING 93 MG/DL (70-100); HDL CHOLESTEROL 65 MG/DL (>40); LDL CHOLESTEROL 147 MG/DL (<100); NON-HDL-C 183 MG/DL; SODIUM LEVEL 141 MEQ/L (136-145); TOTAL PROTEIN 7.7 GM/DL (6.4-8.2); TRIGLYCERIDES LEVEL 179 MG/DL (<150)
== END ==
LOC: M SMT 13:15
PROVIDERS: ATTEND Student in an Organized Health Care Education/Training Program
DX: Z00.00 Encounter for general adult medical examination without abnormal findings (principal); E07.9 Disorder of thyroid, unspecified; E78.00 Pure hypercholesterolemia, unspecified; D64.9 Anemia, unspecified; R73.01 Impaired fasting glucose

== ENCOUNTER → 2018-04-24 | Outpatient (CLI) | payer MEDICARE ==
--- NOTE | 2018-04-24 14:25 | REPMRS ---
Patient History The patient states she has not had a clinical breast exam in over a year. Patient is postmenopausal and is nulliparous. Family history of prostate cancer in paternal grandfather, pancreatic cancer in paternal grandmother, ovarian cancer in maternal grandmother. Benign excisional biopsy of the left breast. No Hormone Replacement Therapy Digital Woman Screen Mammo: April 24, 2018 - Exam #: [id number] Bilateral CC and MLO view(s) were taken. Technologist: Joanne Zepeda, Technologist Prior study comparison: April 10, 2017, digital woman screen mammo performed at [facility]. 2015, digital bilateral screening mammo, performed at [facility]. September 14, 2014, digital bilateral screening mammo, performed at [facility]. FINDINGS: There are scattered fibroglandular densities. There has been no change in the appearance of the mammogram from the prior studies. There is a mild amount of scattered fibroglandular density which is fairly symmetric. There is no interval development of dominant mass, architectural distortion, or clustered microcalcification suggestive of malignancy. 3-D tomosynthesis shows no additional findings. Assessment: BI-RADS/ACR category 1 mammogram. Negative Mammogram. Recommendation Routine screening mammogram of both breasts in 1 year (for women over age 40). This patient's Lifetime Breast Cancer RIsk is estimated at 7.7 %. This mammogram was interpreted with the aid of an FDA-approved computer-aided dectection system. Electronically Signed By: Rip Barillas MD 04/24/18 [id number]
--- NOTE | 2018-04-26 15:13 | DEXA ---
AP SPINE L1 - L4 1.162 -0.3 1.4 LT FEMUR TOTAL 1.213 1.6 3.0 LT NECK 0.972 -0.5 1.1 RT FEMUR TOTAL 1.176 1.3 2.7 RT NECK 0.937 -0.7 0.9 TOTAL BODY TOTAL OTHER COMMENTS: Normal bone densitometry of the spine and hips. The density of the left hip has increased 4.5% since 01/13/2011. The density of the right hip has increased 0.8% since 01/13/2011. FOLLOW-UP: Recommendation for the next bone density exam: 5 years. MARIAH
== END ==
LOC: M WHC 12:49
PROVIDERS: ATTEND Student in an Organized Health Care Education/Training Program
DX: Z12.31 Encounter for screening mammogram for malignant neoplasm of breast (principal); Z13.820 Encounter for screening for osteoporosis

== ENCOUNTER → 2018-09-04 | Outpatient (REF) | payer MEDICARE ==
[2018-09-04 12:20] LABS: CALCIUM LEVEL 9.7 MG/DL (8.8-10.2); CREATININE FOR GFR 0.99 MG/DL (0.55-1.30); GLOMERULAR FILTRATION RATE 59.4 (>45); POTASSIUM SERUM 4.3 MEQ/L (3.5-5.1)
== END ==
LOC: M SFHCPLAZ 11:00
PROVIDERS: ATTEND Family Medicine
DX: M54.41 Lumbago with sciatica, right side (principal)

== ENCOUNTER → 2018-09-11 | Outpatient (CLI) | payer MEDICARE ==
--- NOTE | 2018-09-11 20:02 | REPVR ---
EXAM: MR Lumbar Spine Without Contrast. EXAM DATE/TIME: 09/11/2018 5:13 PM CLINICAL HISTORY: 67 years old, female; Lumbago with sciatica; Patient HX: PT refused contrast at this time. Chronic low back pain worse and radiating down right side. Nki; Additional info: Lumbago with sciatica, right side TECHNIQUE: Imaging protocol: Multiplanar magnetic resonance images of the lumbar spine without intravenous contrast. COMPARISON: No relevant prior studies available. FINDINGS: Vertebrae: Unremarkable. Spinal cord: Normal signal. No cord compression. L1-L2: No significant disc disease. No significant spinal stenosis. L2-L3: No significant disc disease. No significant spinal stenosis. L3-L4: There is a mild central spinal stenosis at L3-4 secondary to diffuse annular bulging, thickened ligamentum flavum and facet joint arthropathy. L4-L5: Bilateral facet joint arthropathy at L4-5. L5-S1: Bulging disc annulus at L5-S1 with a right paracentral disc protrusion mildly impinging on the medial aspect of the right S1 nerve root as it exits from the thecal sac. No significant disc disease. No significant spinal stenosis. Sacrum/coccyx: Unremarkable. Soft tissues: Unremarkable. IMPRESSION: 1. There is a mild central spinal stenosis at L3-4 secondary to diffuse annular bulging, thickened ligamentum flavum and facet joint arthropathy. 2. Bulging disc annulus at L5-S1 with a right paracentral disc protrusion mildly impinging on the medial aspect of the right S1 nerve root as it exits from the thecal sac. Electronically signed by: Mookie Cardoza On 09/11/2018 20:02:03 PM
== END ==
LOC: M RAD 15:24
PROVIDERS: ATTEND Obstetrics & Gynecology
DX: M54.41 Lumbago with sciatica, right side (principal)

== ENCOUNTER 2019-08-14 13:34 | Emergency (ER) | payer MEDICARE ==
[~2019-08-14] VITALS: Ht 152.4 cm; Wt 79.5 kg
[2019-08-14] MEDS ORDERED: NORCO, ANEXSIA 5/325MG TABLET (HYDROcodone/ACETAMINOPHEN) PO ONE (14:00)
[2019-08-14] MEDS ORDERED: NAPR-837 PO (14:51)
[2019-08-14] MEDS ORDERED: traMADol 50 MG TAB PO ONE (15:00)
[2019-08-14] MEDS ORDERED: ACETAMINOPHEN TAB 650MG DOSE (2X325MG) PO ONE (15:00)
[2019-08-14 15:13] VITALS: BP 149/93
--- NOTE | 2019-08-14 15:15 | REP ---
REASON: Posterior pain. PRIORS: None. ANKLE: COMPARISON: No priors. FINDINGS: No acute fracture or destructive osseous lesion. The mortise is intact. There is a 1.3 cm sized soft tissue calcification posterior to the distal tibia in the region of the distal Achilles tendon but more subcutaneous in location. There is a large retrocalcaneal heel spur. IMPRESSION: Achilles tendon rupture/chronic tendinitis cannot be effectively evaluation by plain film. Correlate clinically and if necessary obtain an MRI. Electronically Signed by Charles Tabares DO 08/14/2019 05:04 P
== END 2019-08-14 15:22 | disposition home or self-care (01) ==
LOC: M ED 13:34
DX: S93.402A Sprain of unspecified ligament of left ankle, initial encounter (principal); S86.012A Strain of left Achilles tendon, initial encounter; X50.1XXA Overexertion from prolonged static or awkward postures, initial encounter; Y92.512 Supermarket, store or market as the place of occurrence of the external cause; Y93.9 Activity, unspecified; Y99.9 Unspecified external cause status; M79.7 Fibromyalgia; M77.32 Calcaneal spur, left foot; R93.7 Abnormal findings on diagnostic imaging of other parts of musculoskeletal system; Z91.040 Latex allergy status

== ENCOUNTER 2019-08-24 09:01 | Emergency (ER) | payer MEDICARE, OTHER ==
[~2019-08-24] VITALS: Ht 154.9 cm; Wt 81.8 kg
[2019-08-24 09:01] VITALS: BP 158/94
[~2019-08-24 09:01] MED LIST changes: +NAPR-837 PO
== END 2019-08-24 10:08 | disposition home or self-care (01) ==
LOC: M ED 09:01
DX: T84.84XA Pain due to internal orthopedic prosthetic devices, implants and grafts, initial encounter (principal); Y83.8 Other surgical procedures as the cause of abnormal reaction of the patient, or of later complication, without mention of misadventure at the time of the procedure

== ENCOUNTER → 2019-09-11 | Outpatient (REF) | payer MEDICARE, OTHER | LOC: M SFHCWAGY 09:47 | PROVIDERS: ATTEND Nurse Practitioner Women's Health | DX: N84.1 Polyp of cervix uteri (principal) ==

== ENCOUNTER → 2019-09-22 | Outpatient (CLI) | payer MEDICARE ==
--- NOTE | 2019-10-16 15:47 | REPMRS ---
Patient History The patient states she has not had a clinical breast exam in over a year. Patient is postmenopausal and is nulliparous. Family history of prostate cancer in paternal grandfather, pancreatic cancer in paternal grandmother, ovarian cancer in maternal grandmother. Benign excisional biopsy of the left breast. No Hormone Replacement Therapy Digital Woman Screen Mammo: September 22, 2019 - Exam #: [id number] Bilateral CC and MLO view(s) were taken. Technologist: Leni Conrad, Technologist Prior study comparison: April 24, 2018, bilateral digital woman screen mammo performed at [facility]. April 10, 2017, digital woman screen mammo performed at [facility]. 2015, digital bilateral screening mammo, performed at [facility]. FINDINGS: There are scattered fibroglandular densities. The Volpara volumetric breast density category is:B. There has been no change in the appearance of the mammogram from the prior studies. There is a mild amount of scattered fibroglandular density which is fairly symmetric. There is no interval development of dominant mass, architectural distortion, or grouped microcalcification suggestive of malignancy. 3-D tomosynthesis shows no additional findings. Report was delayed due to a malware attack on this facility. Assessment: BI-RADS/ACR category 1 mammogram. Negative Mammogram. Recommendation Routine screening mammogram of both breasts in 1 year (for women over age 40). This patient's Lifetime Breast Cancer Risk is estimated at 7.2 %. This mammogram was interpreted with the aid of an FDA-approved computer-aided dectection system. Electronically Signed By: Rip Barillas MD 10/16/19 [id number]
--- NOTE | 2019-11-25 09:36 | REP ---
PELVIC ULTRASOUND INCLUDING TRANSABDOMINAL, ENDOVAGINAL, AND COLOR DOPPLER ASSESSMENT FOR POSTMENOPAUSAL BLEEDING Delay in reporting results from hospital computer system malfunction from malware/ ransomware. FINDINGS: The uterus is retroverted and normal size measuring 7.3 x 4.8 x 5.4 cm. The endometrium is diffusely thickened measuring 7 mm. No focal endometrial mass is identified. There are occasional tiny endometrial cysts. The interface of the endometrium and myometrium is indistinct diffusely. This is nonspecific and could represent adenomyosis, neoplasm, or from the diffuse endometrial hypertrophy. RIGHT OVARY: The right ovary is normal in size measuring 2.1 x 1.2 x 1.2 cm. There is no dominant right ovarian mass or cyst. With color Doppler assessment, there is right ovarian vascular flow. LEFT OVARY: The left ovary is normal in size measuring __ x __ x 1.0 cm. There is a 3 mm left ovarian calcification. There is no dominant left ovarian mass or cyst. With color Doppler assessment, there is vascular flow from the left ovary. There is no free fluid in the cul-de-sac. IMPRESSION: Diffusely thickened endometrium and indistinct endometrial/myometrial margin. This is nonspecific and may represent artifact from the thickened endometrium, adenomyosis, or neoplasm. No focal endometrial mass or polyp is identified by ultrasound. There are occasional tiny endometrial cysts. There is a right ovarian calcification. There is no dominant ovarian mass or cyst on the right the left. There is vascular flow in both ovaries. No free fluid in the pelvis. MTDD
== END ==
LOC: M WHC 13:50
PROVIDERS: ATTEND Nurse Practitioner Women's Health
DX: Z12.31 Encounter for screening mammogram for malignant neoplasm of breast (principal); N95.0 Postmenopausal bleeding

== ENCOUNTER → 2020-05-26 | Outpatient (REF) | payer MEDICARE ==
[2020-05-26 14:59] LABS: ALBUMIN 3.8 GM/DL (3.2-5.2); ALT/SGPT 25 U/L (12-78); BILIRUBIN,TOTAL 0.6 MG/DL (0.2-1.0); BLOOD UREA NITROGEN 16 MG/DL (7-18); CALCIUM LEVEL 9.9 MG/DL (8.8-10.2); CARBON DIOXIDE LEVEL 31 MEQ/L (21-32); CHLORIDE LEVEL 104 MEQ/L (98-107); CHOLESTEROL LEVEL 261 MG/DL (<200); CHOLESTEROL RISK RATIO 3.575 (<5); CREATININE FOR GFR 0.88 MG/DL (0.55-1.30); GLOMERULAR FILTRATION RATE > 60.0 (>39); GLUCOSE, FASTING 107 MG/DL (70-100); HDL CHOLESTEROL 73 MG/DL (>40); LDL CHOLESTEROL 165 MG/DL (<100); NON-HDL-C 188 MG/DL; POTASSIUM SERUM 4.8 MEQ/L (3.5-5.1); SODIUM LEVEL 139 MEQ/L (136-145); TOTAL PROTEIN 7.5 GM/DL (6.4-8.2); TRIGLYCERIDES LEVEL 117 MG/DL (<150)
== END ==
LOC: M SFHCPLAZ 09:23
PROVIDERS: ATTEND Family Medicine
DX: Z87.19 Personal history of other diseases of the digestive system (principal); Z79.899 Other long term (current) drug therapy
CPT/HCPCS: 36415; 80053; 80061; G0463

== ENCOUNTER → 2020-09-29 | Outpatient (CLI) | payer MEDICARE ==
--- NOTE | 2020-09-29 14:24 | REP ---
INDICATION: RIGHT GROIN PAIN. COMPARISON: None TECHNIQUE: AP and frog-lateral views FINDINGS: The hip joint space is symmetric and relatively well maintained. There is no fracture, dislocation, or subluxation. There is no buttressing. IMPRESSION: Within normal limits <Electronically signed by Charles Tabares > 09/29/20 [id number]
== END ==
LOC: M PLAIMG 12:50
PROVIDERS: ATTEND Student in an Organized Health Care Education/Training Program
DX: R10.31 Right lower quadrant pain (principal)

== ENCOUNTER → 2020-10-29 | Outpatient (CLI) | payer MEDICARE ==
--- NOTE | 2020-10-29 09:52 | REPMRS ---
Patient History The patient states she has not had a clinical breast exam in over a year. Family history of prostate cancer in paternal grandfather, pancreatic cancer in paternal grandmother, ovarian cancer in maternal grandmother. Benign excisional biopsy of the left breast. No Hormone Replacement Therapy Pfizer vaccine #1 10/07/20 left arm. Patient states no breast complaints today. Patient has signed MRS History Sheet. Digital Woman Screen Mammo: October 29, 2020 - Exam #: [id number] Bilateral CC and MLO view(s) were taken. Technologist: RT Marcelino Prior study comparison: September 22, 2019, bilateral digital woman screen mammo performed at [facility]. April 24, 2018, bilateral digital woman screen mammo performed at [facility]. April 10, 2017, digital woman screen mammo performed at [facility]. FINDINGS: There are scattered fibroglandular densities. The Volpara volumetric breast density category is:B. There has been no change in the appearance of the mammogram from the prior studies. There is a mild amount of scattered fibroglandular density which is fairly symmetric. There is no interval development of dominant mass, architectural distortion, or grouped microcalcification suggestive of malignancy. 3-D tomosynthesis shows no additional findings. Assessment: BI-RADS/ACR category 1 mammogram. Negative Mammogram. Recommendation Routine screening mammogram of both breasts in 1 year (for women over age 40). This patient's [facility] Lifetime Breast Cancer Risk is estimated at 6.8 %. This mammogram was interpreted with the aid of an FDA-approved computer-aided dectection system. Electronically Signed By: Rip Barillas MD 10/29/20 0952
== END ==
LOC: M WHC 09:01
PROVIDERS: ATTEND Student in an Organized Health Care Education/Training Program
DX: Z12.31 Encounter for screening mammogram for malignant neoplasm of breast (principal); Z80.42 Family history of malignant neoplasm of prostate; Z80.0 Family history of malignant neoplasm of digestive organs

== ENCOUNTER → 2021-07-28 | Outpatient (CLI) | payer MEDICARE ==
[2021-07-28 11:04] LABS: ALBUMIN 3.7 GM/DL (3.2-5.2); ALT/SGPT 26 U/L (12-78); BILIRUBIN,TOTAL 0.5 MG/DL (0.2-1.0); BLOOD UREA NITROGEN 15 MG/DL (7-18); C REACTIVE PROTEIN QUANTITATIV 0.66 MG/DL (0.00-0.30); CALCIUM LEVEL 9.9 MG/DL (8.8-10.2); CARBON DIOXIDE LEVEL 30 MEQ/L (21-32); CHLORIDE LEVEL 108 MEQ/L (98-107); CHOLESTEROL LEVEL 234 MG/DL (<200); CREATININE FOR GFR 0.95 MG/DL (0.55-1.30); GLOMERULAR FILTRATION RATE > 60.0 (>39); GLUCOSE, FASTING 109 MG/DL (70-100); HDL CHOLESTEROL 65 MG/DL (>40); LDL CHOLESTEROL 135 MG/DL (<100); NON-HDL-C 169 MG/DL; POTASSIUM SERUM 4.6 MEQ/L (3.5-5.1); RHEUMATOID FACTOR QUANT < 10.0 IU/ML (<15.0); SODIUM LEVEL 143 MEQ/L (136-145); TOTAL PROTEIN 7.4 GM/DL (6.4-8.2); TRIGLYCERIDES LEVEL 172 MG/DL (<150)
[2021-07-28 11:34] LABS: FOLATE 7.9 NG/ML; VITAMIN B12 LEVEL 708 PG/ML
[2021-07-28 12:00] LABS: HEMOGLOBIN A1c 5.7 %
== END ==
LOC: M PLALAB 07:43
PROVIDERS: ATTEND Student in an Organized Health Care Education/Training Program
DX: R73.03 Prediabetes (principal); K76.0 Fatty (change of) liver, not elsewhere classified; G60.9 Hereditary and idiopathic neuropathy, unspecified; M19.90 Unspecified osteoarthritis, unspecified site

== ENCOUNTER → 2021-11-21 | Outpatient (CLI) | payer MEDICARE | LOC: M WHC 08:02 | PROVIDERS: ATTEND Student in an Organized Health Care Education/Training Program | DX: Z12.31 Encounter for screening mammogram for malignant neoplasm of breast (principal) ==

== ENCOUNTER → 2022-03-06 | Outpatient (CLI) | payer MEDICARE ==
[2022-03-06 17:48] LABS: HEMOGLOBIN A1c 5.5 % (4.0-6.0)
[2022-03-06 17:59] LABS: ALBUMIN 3.8 G/DL (3.2-5.2); ALKALINE PHOSPHATASE 59 U/L (46-116); ALT/SGPT 24 U/L (7.0-40); AST/SGOT 25 U/L (<34); BILIRUBIN,TOTAL 0.4 MG/DL (0.3-1.2); BLOOD UREA NITROGEN 19 MG/DL (9-23); CALCIUM LEVEL 10.4 MG/DL (8.3-10.6); CARBON DIOXIDE LEVEL 31 MMOL/L (20-31); CHLORIDE LEVEL 102 MMOL/L (98-107); CREATININE FOR GFR 0.96 MG/DL (0.55-1.30); GLOMERULAR FILTRATION RATE > 60.0 (>39); GLUCOSE, FASTING 90 MG/DL (74-106); POTASSIUM SERUM 4.8 MMOL/L (3.5-5.1); SODIUM LEVEL 140 MMOL/L (136-145); TOTAL PROTEIN 7.2 G/DL (5.7-8.2)
[2022-03-06 18:04] LABS: HEMATOCRIT 44.3 % (36.0-47.0); HEMOGLOBIN 14.8 g/dl (12.0-15.5); MEAN CORPUSCULAR HEMOGLOBIN 33.5 pg (27.0-33.0); MEAN CORPUSCULAR HGB CONC 33.4 g/dl (32.0-36.5); MEAN CORPUSCULAR VOLUME 100.2 fl (80.0-96.0); PLATELET COUNT, AUTOMATED 314 10^3/uL (150-450); RED BLOOD COUNT 4.42 10^6/uL (4.00-5.40); WHITE BLOOD COUNT 10.3 10^3/uL (4.0-10.0)
== END ==
LOC: M PLALAB 15:02
PROVIDERS: ATTEND Family Medicine
DX: Z01.818 Encounter for other preprocedural examination (principal)

== ENCOUNTER → 2022-06-27 | Outpatient (CLI) | payer MEDICARE ==
[2022-06-27 11:56] LABS: CHOLESTEROL RISK RATIO 3.08 (<5); HDL CHOLESTEROL 68.8 MG/DL (>40); LDL CHOLESTEROL 127.2 MG/DL (<100); NON-HDL-C 143.2 MG/DL
[2022-06-27 11:58] LABS: HEMATOCRIT 45.4 % (36.0-47.0); HEMOGLOBIN 15.1 g/dl (12.0-15.5); MEAN CORPUSCULAR HEMOGLOBIN 33.3 pg (27.0-33.0); MEAN CORPUSCULAR HGB CONC 33.3 g/dl (32.0-36.5); MEAN CORPUSCULAR VOLUME 100.2 fl (80.0-96.0); PLATELET COUNT, AUTOMATED 313 10^3/uL (150-450); RED BLOOD COUNT 4.53 10^6/uL (4.00-5.40); WHITE BLOOD COUNT 9.7 10^3/uL (4.0-10.0)
[2022-06-27 11:59] LABS: THYROID STIMULATING HORMONE 1.825 uIU/ML (0.55-4.78)
== END ==
LOC: M PLAIMG 08:18
PROVIDERS: ATTEND Student in an Organized Health Care Education/Training Program
DX: E78.5 Hyperlipidemia, unspecified (principal); R22.32 Localized swelling, mass and lump, left upper limb; K76.0 Fatty (change of) liver, not elsewhere classified; M19.032 Primary osteoarthritis, left wrist

== ENCOUNTER → 2022-09-11 | Outpatient (REF) | payer MEDICARE, OTHER | LOC: M SFHCWAGY 10:19 | PROVIDERS: ATTEND Nurse Practitioner Family | DX: Z12.4 Encounter for screening for malignant neoplasm of cervix (principal); R87.610 Atypical squamous cells of undetermined significance on cytologic smear of cervix (ASC-US) | CPT/HCPCS: 87624; G0123 ==

== ENCOUNTER → 2022-11-08 | Outpatient (CLI) | payer MEDICARE, OTHER | LOC: M CARPUL 08:00 | PROVIDERS: ATTEND Student in an Organized Health Care Education/Training Program | DX: R06.02 Shortness of breath (principal); I08.1 Rheumatic disorders of both mitral and tricuspid valves ==

== ENCOUNTER → 2022-11-29 | Outpatient (CLI) | payer OTHER ==
[2022-11-29 15:36] LABS: HEMATOCRIT 43.4 % (36.0-47.0); HEMOGLOBIN 15.2 g/dl (12.0-15.5); MEAN CORPUSCULAR HEMOGLOBIN 35.3 pg (27.0-33.0); MEAN CORPUSCULAR VOLUME 100.7 fl (80.0-96.0); PLATELET COUNT, AUTOMATED 297 10^3/uL (150-450); RED BLOOD COUNT 4.31 10^6/uL (4.00-5.40); WHITE BLOOD COUNT 7.8 10^3/uL (4.0-10.0)
[2022-11-29 16:05] LABS: ALBUMIN 3.9 G/DL (3.2-5.2); BLOOD UREA NITROGEN 17 MG/DL (9-23); CALCIUM LEVEL 9.4 MG/DL (8.3-10.6); CARBON DIOXIDE LEVEL 29 MMOL/L (20-31); CHLORIDE LEVEL 108 MMOL/L (98-107); CREATININE FOR GFR 0.74 MG/DL (0.55-1.30); GLOMERULAR FILTRATION RATE > 60.0 (>39); GLUCOSE, FASTING 101 MG/DL (74-106); PHOSPHORUS LEVEL 3.9 MG/DL (2.4-5.1); POTASSIUM SERUM 4.8 MMOL/L (3.5-5.1); SODIUM LEVEL 143 MMOL/L (136-145)
== END ==
LOC: M PLALAB 12:22
PROVIDERS: ATTEND Internal Medicine Cardiovascular Disease
DX: R06.02 Shortness of breath (principal); I10 Essential (primary) hypertension

== ENCOUNTER → 2022-12-25 | Outpatient (CLI) | payer OTHER | LOC: M RAD 09:53 | PROVIDERS: ATTEND Student in an Organized Health Care Education/Training Program | DX: M67.432 Ganglion, left wrist (principal) ==

== ENCOUNTER → 2022-12-27 | Outpatient (REF) | payer OTHER | LOC: M SFHCPLAZ 17:10 | PROVIDERS: ATTEND Physician Assistant Medical | DX: J06.9 Acute upper respiratory infection, unspecified (principal) ==

== ENCOUNTER → 2023-01-24 | Outpatient (CLI) | payer OTHER | LOC: M CARPUL 11:08 | PROVIDERS: ATTEND Internal Medicine Cardiovascular Disease | DX: R06.02 Shortness of breath (principal) ==

== ENCOUNTER → 2023-09-25 | Outpatient (CLI) | payer OTHER ==
[2023-09-25 16:12] LABS: HEMATOCRIT 44.6 % (36.0-47.0); HEMOGLOBIN 15.2 g/dl (12.0-15.5); MEAN CORPUSCULAR HEMOGLOBIN 33.9 pg (27.0-33.0); MEAN CORPUSCULAR HGB CONC 34.1 g/dl (32.0-36.5); MEAN CORPUSCULAR VOLUME 99.6 fl (80.0-96.0); PLATELET COUNT, AUTOMATED 295 10^3/uL (150-450); RED BLOOD COUNT 4.48 10^6/uL (4.00-5.40); WHITE BLOOD COUNT 8.3 10^3/uL (4.0-10.0)
[2023-09-25 16:40] LABS: HEMOGLOBIN A1c 5.6 % (4.0-6.0)
[2023-09-25 16:42] LABS: FREE T4 0.98 NG/DL (0.89-1.76); THYROID STIMULATING HORMONE 1.371 uIU/ML (0.55-4.78)
[2023-09-25 16:43] LABS: ALKALINE PHOSPHATASE 63 U/L (46-116); ALT/SGPT 25 U/L (7.0-40); AST/SGOT 18 U/L (<34); BILIRUBIN,TOTAL 0.6 MG/DL (0.3-1.2); BLOOD UREA NITROGEN 17 MG/DL (9-23); CARBON DIOXIDE LEVEL 30 MMOL/L (20-31); CHLORIDE LEVEL 107 MMOL/L (98-107); CREATININE FOR GFR 0.77 MG/DL (0.55-1.30); GLOMERULAR FILTRATION RATE > 60.0 (>39); GLUCOSE, FASTING 98 MG/DL (74-106); POTASSIUM SERUM 4.6 MMOL/L (3.5-5.1); SODIUM LEVEL 143 MMOL/L (136-145); TOTAL PROTEIN 7.2 G/DL (5.7-8.2)
[2023-09-25 16:45] LABS: VITAMIN B12 LEVEL 456 PG/ML (211-911)
[2023-09-25 16:46] LABS: FOLATE 18.2 NG/ML (>5.4)
== END ==
LOC: M PLALAB 12:03
DX: R63.4 Abnormal weight loss (principal); Z79.899 Other long term (current) drug therapy

== ENCOUNTER → 2023-09-25 | Outpatient (REF) | payer OTHER | LOC: M SFHCPLAZ 11:57 | DX: R63.4 Abnormal weight loss (principal) ==

== ENCOUNTER → 2023-10-11 | Outpatient (CLI) | payer OTHER | LOC: M WHC 10:29 | DX: Z13.820 Encounter for screening for osteoporosis (principal) ==

== ENCOUNTER 2023-11-06 10:15 | Day surgery (SDC) | payer OTHER ==
[~2023-11-06] VITALS: Ht 149.9 cm; Wt 77.8 kg
[~2023-11-06 10:15] MED LIST changes: +LOSA25TA13 PO; +NS 1,000 ML IV ONE
[2023-11-06] MEDS ORDERED: propofoL 200 MG/20 ML VIAL As Ordered ONE (11:14)
[2023-11-06] MEDS ORDERED: fentaNYL 100 MCG/2 ML INJECTION As Ordered ONE (11:14)
[2023-11-06] MEDS ORDERED: LIDOCAINE 2% 100MG/5ML SDV (FOR ANES.) As Ordered ONE (11:14)
[2023-11-06 11:32] VITALS: TEMP 97
[2023-11-06 11:52] VITALS: BP 129/61; O2SAT 95
== END 2023-11-06 12:00 | disposition home or self-care (01) ==
LOC: M OPP 10:15
PROVIDERS: ATTEND Surgery
DX: K20.90 Esophagitis, unspecified without bleeding (principal); R12 Heartburn; I10 Essential (primary) hypertension; Z79.899 Other long term (current) drug therapy; Z91.040 Latex allergy status
CPT/HCPCS: 43239; 88305; J3010

== ENCOUNTER → 2023-12-21 | Outpatient (CLI) | payer OTHER ==
[~2023-12-21] MED LIST changes: -NS 1,000 ML IV ONE
[2023-12-21 13:08] LABS: BASO # 0.1 10^3/uL (0.0-0.2); BASO % 0.6 % (0.0-1.0); EOS # 0.2 10^3/uL (0.0-0.5); EOS % 1.9 % (0.0-3.0); HEMATOCRIT 39.5 % (36.0-47.0); HEMOGLOBIN 13.4 g/dl (12.0-15.5); LYMPH # 3.2 10^3/uL (1.5-5.0); LYMPH % 31.7 % (24.0-44.0); MEAN CORPUSCULAR HEMOGLOBIN 33.1 pg (27.0-33.0); MEAN CORPUSCULAR HGB CONC 33.9 g/dl (32.0-36.5); MEAN CORPUSCULAR VOLUME 97.5 fl (80.0-96.0); MONO # 0.7 10^3/uL (0.0-0.8); MONO % 7.3 % (2.0-8.0); NEUTROPHILS # 5.9 10^3/uL (1.5-8.5); PLATELET COUNT, AUTOMATED 365 10^3/uL (150-450); RED BLOOD COUNT 4.05 10^6/uL (4.00-5.40); WHITE BLOOD COUNT 10.1 10^3/uL (4.0-10.0)
== END ==
LOC: M PLALAB 11:20
PROVIDERS: ATTEND Student in an Organized Health Care Education/Training Program
DX: K12.1 Other forms of stomatitis (principal)

== ENCOUNTER → 2024-01-01 | Outpatient (CLI) | payer OTHER | LOC: M WHC 07:46 | DX: Z12.31 Encounter for screening mammogram for malignant neoplasm of breast (principal); Z53.9 Procedure and treatment not carried out, unspecified reason ==

== ENCOUNTER → 2024-01-03 | Outpatient (CLI) | payer OTHER | LOC: M WHC 12:47 | DX: Z12.31 Encounter for screening mammogram for malignant neoplasm of breast (principal); R92.323 Mammographic fibroglandular density, bilateral breasts ==

== ENCOUNTER → 2024-08-04 | Outpatient (CLI) | payer MEDICARE ==
[2024-08-04 17:40] LABS: BASO # 0.1 10^3/uL (0.0-0.2); BASO % 0.8 % (0.0-1.0); EOS # 0.3 10^3/uL (0.0-0.5); EOS % 3.3 % (0.0-3.0); HEMATOCRIT 42.6 % (36.0-47.0); HEMOGLOBIN 14.4 g/dl (12.0-15.5); LYMPH # 3.2 10^3/uL (1.5-5.0); LYMPH % 35.9 % (24.0-44.0); MEAN CORPUSCULAR HEMOGLOBIN 33.1 pg (27.0-33.0); MEAN CORPUSCULAR HGB CONC 33.8 g/dl (32.0-36.5); MEAN CORPUSCULAR VOLUME 97.9 fl (80.0-96.0); MONO # 0.9 10^3/uL (0.0-0.8); MONO % 9.6 % (2.0-8.0); NEUTROPHILS # 4.5 10^3/uL (1.5-8.5); NEUTROPHILS % 50.2 % (36.0-66.0); PLATELET COUNT, AUTOMATED 300 10^3/uL (150-450); RED BLOOD COUNT 4.35 10^6/uL (4.00-5.40)
[2024-08-04 18:35] LABS: ERYTHROCYTE SEDIMENTATION RATE 23 mm/hr (0-30)
[2024-08-07 03:18] LABS: IgG P18 AB REACTIVE; IgG P23 AB NON-REACTIVE; IgG P28 AB NON-REACTIVE; IgG P30 AB NON-REACTIVE; IgG P39 AB NON-REACTIVE; IgG P41 AB NON-REACTIVE; IgG P45 AB NON-REACTIVE; IgG P58 AB REACTIVE; IgG P66 AB NON-REACTIVE; IgG P93 AB NON-REACTIVE; IgM P23 AB NON-REACTIVE; IgM P39 AB NON-REACTIVE; IgM P41 AB NON-REACTIVE; LYME IgG WB INTERPRETATION NEGATIVE (NEGATIVE); LYME IgM WB INTERPRETATION NEGATIVE (NEGATIVE)
== END ==
LOC: M PLALAB 15:55
PROVIDERS: ATTEND Student in an Organized Health Care Education/Training Program
DX: M15.0 Primary generalized (osteo)arthritis (principal)

== ENCOUNTER → 2024-11-20 | Outpatient (CLI) | payer MEDICARE ==
[~2024-11-20] MED LIST changes: -IBUP-1022 PO; +IBUP600T42 PO
[2024-11-20 15:35] LABS: ALT/SGPT 20 U/L (7.0-40); AST/SGOT 20 U/L (<34); CALCIUM LEVEL 9.8 MG/DL (8.3-10.6); CARBON DIOXIDE LEVEL 30 MMOL/L (20-31); CHLORIDE LEVEL 103 MMOL/L (98-107); CHOLESTEROL LEVEL 232 MG/DL (<200); CHOLESTEROL RISK RATIO 3.08 (<5); CK-MB VALUE MASS 2.7 NG/ML (<3.6); CPK CREATINE PHOSPHOKINASE 135 U/L (34-145); CREATININE FOR GFR 0.97 MG/DL (0.55-1.30); GLOMERULAR FILTRATION RATE 61.3 (>39); LDL CHOLESTEROL 135.4 MG/DL (<100); MB/CK RELATIVE INDEX 2.00 (< OR =4); NON-HDL-C 156.8 MG/DL; POTASSIUM SERUM 4.6 MMOL/L (3.5-5.1); SODIUM LEVEL 140 MMOL/L (136-145); TRIGLYCERIDES LEVEL 107 MG/DL (<150)
== END ==
LOC: M PLALAB 13:21
PROVIDERS: ATTEND Family Medicine
DX: I10 Essential (primary) hypertension (principal)

== ENCOUNTER → 2025-01-30 | Outpatient (CLI) | payer MEDICARE | LOC: M PLAIMG 13:25 | PROVIDERS: ATTEND Student in an Organized Health Care Education/Training Program | DX: I10 Essential (primary) hypertension (principal) ==